=== PATIENT | male | born 1945 | race Caucasian/White ===

== ENCOUNTER 2019-06-26 12:17 | Outpatient (CLI) | payer MEDICARE, OTHER ==
--- NOTE | 2019-06-28 15:08 | MRI Report ---
Reason: RADICULOPATHY, CERVICAL RE Procedure Date: 06/26/2019 Accession Number: [id number] / [id number] Procedure: MRI - Cervical Spine W/O CPT Code: FULL RESULT: EXAM: MRI CERVICAL SPINE WITHOUT CONTRAST EXAM DATE: 06/26/2019 01:20 PM. CLINICAL HISTORY: Radiculopathy, cervical. COMPARISONS: None. TECHNIQUE: Multiplanar, multisequence T1-weighted and fluid-sensitive sequences of the cervical spine without contrast. Other: None. FINDINGS: Neurologic Structures: The visualized posterior fossa structures are unremarkable. No signal abnormality in the visualized spinal cord. Alignment: No scoliosis or spondylolisthesis. Bone Marrow: Firm fusion at C6-C7. No fractures. No marrow edema. Interspace Levels/Facets: C1-C2: Unremarkable. C2-C3: Mild broad-based disk bulge is present. No central or foraminal stenosis. C3-C4: Broad-based disk bulge, slight indentation of ventral thecal sac. Moderate central stenosis. Prominent facets. Severe left and moderate right foraminal stenosis. C4-C5: Broad-based disk bulge, marginal osteophytosis. Moderate central stenosis. Severe bilateral foraminal stenosis. C5-C6: Disk/osteophyte complex. Short pedicles. Prominent facets. No central stenosis. Mild bilateral foraminal stenosis. C6-C7: Firm interbody fusion at this level. No stenosis. C7-T1: Mild broad-based disk bulge is seen. Prominent facets. No central or foraminal stenosis. Musculature: Moderate to severe fatty atrophy of the multifidus muscle is present. Other: The paravertebral and prevertebral soft tissues are normal. IMPRESSION: 1. Posterior fossa and cervical cord have a normal appearance. Firm interbody fusion at C6-C7. No fractures. Moderate to severe fatty atrophy of the multifidus muscle is present. 2. C2-C3 shows a mild broad-based bulge, no central or foraminal stenosis. 3. C3-C4 shows a broad-based disk bulge with slight indentation of the ventral thecal sac. Moderate central stenosis. Severe left and moderate right foraminal stenosis. 4. C4-C5 shows a broad-based disk bulge. Moderate central stenosis and severe bilateral foraminal stenosis. 5. C5-C6 shows disk/osteophyte complex and short pedicles. No central stenosis. Mild bilateral foraminal stenosis. 6. C6-C7 shows a firm interbody fusion. No stenosis. 7. C7-T1 shows a mild broad-based disk bulge and prominent facets. No central or foraminal stenosis. RADIA
== END 2019-06-26 12:18 | disposition home or self-care (01) ==
LOC: DI 12:17
PROVIDERS: ATTEND Family Medicine
DX: M50.11 Cervical disc disorder with radiculopathy, high cervical region (principal); M48.02 Spinal stenosis, cervical region; M25.78 Osteophyte, vertebrae
CPT/HCPCS: 72141

== ENCOUNTER 2021-04-26 09:56 | Outpatient (CLI) | payer MEDICARE, OTHER ==
--- NOTE | 2021-04-26 11:34 | XRAY Report ---
PROCEDURE: Elbow 2 View RT INDICATIONS: ELBOW PAIN, RIGHT TECHNIQUE: 2 views of the elbow were acquired. COMPARISON: None FINDINGS: Bones: The elbow has mild degenerative changes. No fractures or dislocations. No suspicious bony les ions. Soft tissues: No elbow joint effusion. No suspicious soft tissue calcifications. IMPRESSION: Degenerative changes of the right elbow. No acute abnormality. Reviewed by: Joni Osman on 04/26/2021 11:32 AM PDT Approved by: Joni Osman on 04/26/2021 11:32 AM PDT Station ID: [id number]
== END 2021-04-26 23:59 | disposition home or self-care (01) ==
LOC: DI.N 09:56
PROVIDERS: ATTEND Family Medicine
DX: M19.021 Primary osteoarthritis, right elbow (principal)

== ENCOUNTER 2022-03-29 15:36 | Outpatient (CLI) | payer MEDICARE, OTHER ==
[2022-03-29 15:56] LABS: BASOPHILS % (AUTO) 0.8 %; EOSINOPHILS # (AUTO) 0.4 10^3/uL (0.0-0.7); EOSINOPHILS % (AUTO) 7.6 %; HCT - HEMATOCRIT 40.8 % (42.0-52.0); HGB - HEMOGLOBIN 12.6 g/dL (14.0-18.0); LYMPHOCYTES # (AUTO) 1.3 10^3/uL (1.5-3.5); LYMPHOCYTES % (AUTO) 25.7 %; MEAN CORPUSCULAR HGB CONC 30.9 g/dL (32.0-36.0); MEAN CORPUSCULAR VOLUME 100.2 fL (80.0-94.0); MONOCYTES # (AUTO) 0.5 10^3/uL (0.0-1.0); MONOCYTES % (AUTO) 10.3 %; NEUTROPHILS # (AUTO) 2.9 10^3/uL (1.5-6.6); NEUTROPHILS % (AUTO) 55.4 %; PLT - PLATELET COUNT 144 10^3/uL (130-450); RED BLOOD COUNT 4.07 10^6/uL (4.70-6.10); RED CELL DISTRIBUTION WIDTH 12.3 % (12.0-15.0); WHITE BLOOD COUNT 5.1 x10^3/uL (4.8-10.8)
[2022-03-29 16:11] LABS: CHOL/HDL RATIO 2.1 (<5.0); CHOLESTEROL 132 mg/dL; HDL CHOLESTEROL 64 mg/dL; TRIGLYCERIDES 37 mg/dL
[2022-03-29 16:23] LABS: THYROID STIMULATING HORMONE 0.78 uIU/mL (0.34-5.60)
[2022-03-29 16:26] LABS: ALBUMIN 3.9 g/dL (3.2-5.5); ALBUMIN/GLOBULIN RATIO 1.4 (1.0-2.2); ALKALINE PHOSPHATASE 55 IU/L (42-121); ALT ALANINE AMINOTRANSFERASE 17 IU/L (10-60); AST ASPARTATE AMINOTRANSFERASE 20 IU/L (10-42); BILIRUBIN,TOTAL 0.6 mg/dL (0.2-1.0); BUN - BLOOD UREA NITROGEN 27 mg/dL (6-20); CALCIUM 8.7 mg/dL (8.5-10.3); CARBON DIOXIDE - CO2 29 mmol/L (21-32); CHLORIDE 102 mmol/L (101-111); CREATININE 1.1 mg/dL (0.6-1.2); GFR - MDRD 65 (>89); GLUCOSE 120 mg/dL (70-100); POTASSIUM 4.6 mmol/L (3.5-5.0); SODIUM 138 mmol/L (135-145); TOTAL PROTEIN 6.7 g/dL (6.7-8.2)
== END 2022-03-29 15:37 | disposition home or self-care (01) ==
LOC: LAB 15:36
PROVIDERS: ATTEND Internal Medicine
DX: E78.5 Hyperlipidemia, unspecified (principal); I10 Essential (primary) hypertension
CPT/HCPCS: 36415; 80053; 80061; 83721; 84443; 85025

== ENCOUNTER 2022-03-30 14:14 | Outpatient (CLI) | payer MEDICARE, OTHER ==
[2022-03-30 15:19] LABS: PSA FREE 0.64 ng/mL (0.16-2.81)
[2022-03-30 15:20] LABS: PSA TOTAL 3.95 ng/mL (0.000-2.000)
== END 2022-03-30 14:15 | disposition home or self-care (01) ==
LOC: LAB 14:14
DX: N40.0 Benign prostatic hyperplasia without lower urinary tract symptoms (principal)
CPT/HCPCS: 36415; 84153; 84154

== ENCOUNTER 2022-08-08 14:34 | Outpatient (CLI) | payer MEDICARE, OTHER ==
[2022-08-08 14:44] LABS: BASOPHILS % (AUTO) 0.7 %; EOSINOPHILS # (AUTO) 0.4 10^3/uL (0.0-0.7); EOSINOPHILS % (AUTO) 6.9 %; HCT - HEMATOCRIT 42.4 % (42.0-52.0); HGB - HEMOGLOBIN 13.8 g/dL (14.0-18.0); LYMPHOCYTES # (AUTO) 1.7 10^3/uL (1.5-3.5); LYMPHOCYTES % (AUTO) 30.2 %; MEAN CORPUSCULAR HEMOGLOBIN 31.9 pg (27.0-31.0); MEAN CORPUSCULAR HGB CONC 32.5 g/dL (32.0-36.0); MEAN CORPUSCULAR VOLUME 97.9 fL (80.0-94.0); MEAN PLATELET VOLUME 10.4 fL (7.4-11.4); MONOCYTES # (AUTO) 0.7 10^3/uL (0.0-1.0); MONOCYTES % (AUTO) 11.3 %; NEUTROPHILS # (AUTO) 2.9 10^3/uL (1.5-6.6); NEUTROPHILS % (AUTO) 50.6 %; PLT - PLATELET COUNT 183 10^3/uL (130-450); RED BLOOD COUNT 4.33 10^6/uL (4.70-6.10); RED CELL DISTRIBUTION WIDTH 12.8 % (12.0-15.0); WHITE BLOOD COUNT 5.8 x10^3/uL (4.8-10.8)
[2022-08-08 14:56] LABS: CALCIUM 8.9 mg/dL (8.5-10.3); CREATININE 1.2 mg/dL (0.6-1.2); POTASSIUM 3.9 mmol/L (3.5-5.0)
== END 2022-08-08 14:35 | disposition home or self-care (01) ==
LOC: LAB 14:34
PROVIDERS: ATTEND Internal Medicine
DX: Z01.812 Encounter for preprocedural laboratory examination (principal); I49.3 Ventricular premature depolarization
CPT/HCPCS: 36415; 80048; 85025

== ENCOUNTER 2023-12-25 10:48 | Outpatient (CLI) | payer MEDICARE, OTHER | END 2023-12-25 10:49 | disposition critical access hospital (66) | LOC: EMS 10:48 | DX: R53.1 Weakness (principal); R11.0 Nausea; R47.81 Slurred speech | CPT/HCPCS: A0425; A0429 ==

== ENCOUNTER 2023-12-25 11:01 | Emergency (ER) | payer MEDICARE, OTHER ==
--- NOTE | 2023-12-25 11:11 | ED Physician Documentation ---
PD HPI FOCAL NEURO - Stated complaint Stated Complaint: WEAKNESS - History obtained from History obtained from: Patient, EMS - History of Present Illness Timing - onset: How many hours ago (1), Today Timing - duration: Hours (1) Timing - details: Abrupt onset (He states he got up from sitting in his legs felt weak and not holding him. He sat back down. No fall or injury. Subsequently feels his legs are moving symmetrically. He is however having difficulty speaking with the articulation as well as content. This is new for him.), Still present Severity of deficit: Moderate Weakness: No: Face, Arm, Leg Numbness: No: Face, Arm, Leg Associated symptoms: Other (expressive aphasia). No: Headache, Nausea / vomiting Contributing factors: positive: Anticoagulated (due to atrial fib. Last dose last evening.), Atrial fibrillation Baseline status: positive: A&OX3, ambulatory, indep Similar symptoms before: Has not had sx before Review of Systems Constitutional: denies: Fever, Chills Nose: denies: Rhinorrhea / runny nose, Congestion Throat: denies: Sore throat Cardiac: denies: Chest pain / pressure, Pedal edema Respiratory: reports: Dyspnea (intermittently, exertional). denies: Cough GI: reports: Nausea. denies: Abdominal Pain, Vomiting Neurologic: denies: Head injury, LOC PD PAST MEDICAL HISTORY - Past Medical History Cardiovascular: Congestive heart failure, Atrial fibrillation Respiratory: None Neuro: None - Present Medications Home Medications: Ambulatory Orders Medication Instructions Recorded Confirmed Eszopiclone [Lunesta] 3 mg PO QPM 12/25/23 12/25/23 Furosemide [Lasix] 40 mg PO DAILY 12/25/23 12/25/23 Losartan [Cozaar] 100 mg PO DAILY 12/25/23 12/25/23 Metoprolol Succinate [Toprol Xl] 25 mg PO BID 12/25/23 12/25/23 Ondansetron HCl 4 mg SL Q8HR PRN 12/25/23 12/25/23 Oxycodone HCl 10 - 15 mg PO Q4HR PRN 12/25/23 12/25/23 Rivaroxaban [Xarelto] 20 mg PO DAILY 12/25/23 12/25/23 Sertraline HCl 150 mg PO DAILY 12/25/23 12/25/23 Tamsulosin [Flomax] 0.4 mg PO DAILY 12/25/23 12/25/23 buPROPion HCL [Bupropion Xl] 300 mg PO DAILY 12/25/23 12/25/23 busPIRone [Buspar] 15 mg PO TID 12/25/23 12/25/23 traZODone [Desyrel] 100 mg PO HS 12/25/23 12/25/23 - Allergies Allergies/Adverse Reactions: Allergies Allergy/AdvReac Type Severity Reaction Status Date / Time No Known Drug Allergies Allergy Verified 12/25/23 11:31 PD ED PE NORMAL - Vitals Vital signs reviewed: Yes - General General: Alert and oriented X 3, Well developed/nourished - HEENT HEENT: Atraumatic, Pharynx benign - Neck Neck: Supple, no meningeal sign, No adenopathy - Cardiac Cardiac: No murmur. No: RRR (irregular but normal rate 80-110.) - Respiratory Respiratory: No respiratory distress - Abdomen Abdomen: Soft, Non tender - Derm Derm: Normal color, Warm and dry - Extremities Extremities: Normal ROM s pain - Neuro Neuro: Alert and oriented X 3, band edger 2-12 intact, No motor deficit, No sensory deficit. No: Normal speech NIHSS - Level of Consciousness Level of consciousness: (0) Alert, Keenly responsive LOC Questions: (0) Answers both Q's correct LOC Commands: (0) Performs both correctly - Gaze Best Gaze: (0) Normal - Visual Visual: (0) No loss - Facial Palsy Facial Palsy: (0) Normal, symmetrical movement - Motor Arms (both separate) Motor Arm (right): (0) No drift Motor Arm (left): (0) No drift - Motor Legs (both separate) Motor Leg (right): (0) No drift Motor Leg (left): (0) No drift - Limb Ataxia Limb Ataxia: (1) Present in 1 limb (right arm) - Sensory Sensory: (0) Normal - Best Language Best Language: (1) [id number] - Dysarthria Dysarthria: (1) Vrcs-ny-juiqthjr dysarthria - Extinction and Inattention (formally neg Extinction and inattention: (0) No abnormality - Total Score/Results Total Score/Result: 3 Results - Vitals Vitals: Vital Signs - 24 hr 12/25/23 12/25/2312/25/24 11:01 11:37 12:03 Temperature 36.8 C Heart Rate 85 99 90 Respiratory 18 19 20 Rate Blood Pressure 131/67 H 122/70 112/79 O2 Saturation 91 L 96 96 If not protocol 2 : Oxygen Flow, liters/minute 12/25/23 12/25/23 12/25/23 12:30 13:02 13:34 Temperature Heart Rate 98 100 104 H Respiratory 16 17 15 Rate Blood Pressure 117/74 111/62 126/69 O2 Saturation 91 L 93 94 If not protocol 2 2 : Oxygen Flow, liters/minute Oxygen O2 Source Nasal cannula - Labs Labs: Laboratory Tests 12/25/23 12/25/23 12/25/23 11:26 11:26 11:26 WBC 4.9 RBC 3.77 L Hgb 11.3 L Hct 37.3 L MCV 98.9 H MCH 30.0 MCHC 30.3 L RDW 13.5 Plt Count 115 L MPV 11.2 Neut # (Auto) 2.4 Lymph # (Auto) 1.7 Dixie # (Auto) 0.6 Eos # (Auto) 0.2 Baso # (Auto) 0.0 Absolute Nucleated RBC 0.00 Nucleated RBC % 0.0 ESR 18 PT INR Sodium 141 Potassium 3.3 L Chloride 102 Carbon Dioxide 33 H Anion Gap 6.0 BUN 25 H Creatinine 1.3 Estimated GFR (MDRD) 53 L Glucose 123 H Calcium 8.8 Magnesium 1.8 Total Bilirubin 1.1 H AST 22 ALT 14 Alkaline Phosphatase 72 Total Protein 6.8 Albumin 3.9 Globulin 2.9 Albumin/Globulin Ratio 1.3 Lipase 10 L 12/25/23 11:26 WBC RBC Hgb Hct MCV MCH MCHC RDW Plt Count MPV Neut # (Auto) Lymph # (Auto) Dixie # (Auto) Eos # (Auto) Baso # (Auto) Absolute Nucleated RBC Nucleated RBC % ESR PT 18.7 H INR 1.7 H Sodium Potassium Chloride Carbon Dioxide Anion Gap BUN Creatinine Estimated GFR (MDRD) Glucose Calcium Magnesium Total Bilirubin AST ALT Alkaline Phosphatase Total Protein Albumin Globulin Albumin/Globulin Ratio Lipase PD Medical Decision Making - ED course Complexity details: considered differential (Onset of aphasia and some ataxia of the right arm. He does take a DOAC with last dose last evening. History of A- fib. He had a CT scan head and angio. There was a occlusion at the V3 left vertebral. No bleed.), d/w patient, d/w golf tournament consultant (Dr. Combs, stroke neurology.) Reviewed Lab Results: The patient has acute symptoms concerning for CVA. CT of the head did not show any acute mass effect or bleeding. Angiogram was concerning for an apparent occlusion at the left vertebral V3 level. Stroke neurology, Dr. Combs, was consulted and was evaluating for potential endovascular approach for treatment. He consulted the endovascular neurologist at [facility] and decision was for nonendovascular treatment being of more distal area. There is still concern though for sequela a of posterior fossa stroke including bleeding, edema, impact on the brainstem. It was felt he should be in a neuro ICU. The neurologist made arrangements for transfer the patient to [facility]. I talked with the talent sourcer there, Dr. Mikel ANTOINE, who accepted transfer. Arrangements will be made for the patient to go ground ALS as he is on a heparin drip at the direction of neurology. Also neurochecks and concern for fluctuations in level of consciousness with subsequent airway issues would be of concern so ALS is appropriate. He is not serious enough to need airlift. 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
[2023-12-25 11:33] LABS: BASOPHILS % (AUTO) 0.4 %; EOSINOPHILS # (AUTO) 0.2 10^3/uL (0.0-0.7); EOSINOPHILS % (AUTO) 4.5 %; HCT - HEMATOCRIT 37.3 % (42.0-52.0); HGB - HEMOGLOBIN 11.3 g/dL (14.0-18.0); LYMPHOCYTES # (AUTO) 1.7 10^3/uL (1.5-3.5); LYMPHOCYTES % (AUTO) 33.9 %; MEAN CORPUSCULAR HGB CONC 30.3 g/dL (32.0-36.0); MEAN CORPUSCULAR VOLUME 98.9 fL (80.0-94.0); MEAN PLATELET VOLUME 11.2 fL (7.4-11.4); MONOCYTES # (AUTO) 0.6 10^3/uL (0.0-1.0); MONOCYTES % (AUTO) 12.9 %; NEUTROPHILS # (AUTO) 2.4 10^3/uL (1.5-6.6); NEUTROPHILS % (AUTO) 48.1 %; PLT - PLATELET COUNT 115 10^3/uL (130-450); RED BLOOD COUNT 3.77 10^6/uL (4.70-6.10); RED CELL DISTRIBUTION WIDTH 13.5 % (12.0-15.0); WHITE BLOOD COUNT 4.9 x10^3/uL (4.8-10.8)
--- NOTE | 2023-12-25 11:33 | CT Report ---
PROCEDURE: Head W/O Stroke Protocol INDICATIONS: aphasia and weakness TECHNIQUE: Noncontrast 4.5 mm thick angled axial sections acquired from the foramen magnum to the vertex, with c oronal reformats. For radiation dose reduction, the following was used: automated exposure control, adjustment of mA and/or kV according to patient size. COMPARISON: None. FINDINGS: Image quality: Moderate patient motion artifact. CSF spaces: Basal cisterns are patent. No extra-axial fluid collections. Ventricles are normal in size and shape. Brain: No midline shift. No intracranial masses or hemorrhage. No mass effect. Quiles-white matter i nterface is normal. There cerebral volume loss for age with resultant ventricular and sulcal prominen ce. There are periventricular and deep white matter chronic small vessel ischemic changes. Atheroscle rotic calcifications are noted in the intracranial segments of the bilateral internal carotid arterie s. Skull and face: Calvarium and visualized facial bones are intact, without suspicious lesions. Sinuses: Mild left maxillary sinus mucosal thickening. Other paranasal sinuses and mastoids are clear . IMPRESSION: No acute intracranial pathology Age-related senescent changes and sequela of chronic small vessel ischemic disease. Mild left maxillary sinus disease. Findings were discussed telephonically with Dr. Geiger at 1129 hours. This study fulfills neurological imaging criteria for inclusion or exclusion of acute stroke therapie s based on available published neurological imaging guidelines. Reviewed by: Lauri Suazo MD on 12/25/2023 11:32 AM [facility] Approved by: Lauri Suazo MD on 12/25/2023 11:32 AM PST Station ID: [id number]
[2023-12-25] MEDS: SODIUM CHLORIDE 0.9% 1,000 ML IV STA ×2 (11:34→12:57)
[2023-12-25 11:46] LABS: ALBUMIN 3.9 g/dL (3.2-5.5); ALBUMIN/GLOBULIN RATIO 1.3 (1.0-2.2); BILIRUBIN,TOTAL 1.1 mg/dL (0.2-1.0); CALCIUM 8.8 mg/dL (8.5-10.3); CREATININE 1.3 mg/dL (0.6-1.3); MAGNESIUM 1.8 mg/dL (1.7-2.3); POTASSIUM 3.3 mmol/L (3.5-4.5); TOTAL PROTEIN 6.8 g/dL (6.4-8.9)
[2023-12-25 11:50] LABS: INR 1.7 (0.8-1.2); PT - PROTHROMBIN TIME 18.7 secs (9.9-12.6)
--- NOTE | 2023-12-25 12:05 | CT Report ---
PROCEDURE: Angio Head/Neck INDICATIONS: aphasia and weakness this morning CONTRAST: Omni 300 80ml TECHNIQUE: After the administration of intravenous contrast, 1 mm thick sections acquired through the [place]. Postcontrast 4.5 mm thick sections then re-acquired from the foramen magnum to the vertex. 3-dimensional orrcwqt-xferulgdi-kbddtmbgju (MIP) and/or volume rendering reformats were acquired of t central intracranial vasculature. For radiation dose reduction, the following was used: automate d exposure control, adjustment of mA and/or kV according to patient size. COMPARISON: CT head from earlier same day. FINDINGS: Image quality: Diagnostic. Anterior circulation: Intracranial internal carotid arteries are normal in size and flow. The flow within the paired anterior cerebral arteries is normal and symmetric. The flow within the middle cer ebral arteries is normal and symmetric. The anterior communicating artery is seen. No aneurysms are seen. Posterior circulation: Visualized portions of the right vertebral artery demonstrates normal caliber , and join to form a normal appearing basilar artery. There is diminutive size of the left vertebral artery. Flow within the posterior cerebral arteries is normal and symmetric. No aneurysms are seen. CSF spaces: Ventricles are normal in size and shape. Basal cisterns are patent. No extra-axial flu id collections. Brain: No midline shift. No intracranial bleeds or masses. Quiles-white matter interface appears int act. Skull and face: Calvarium and facial bones appear intact, without suspicious lesions. Sinuses: Mild left maxillary sinus disease. Other paranasal sinuses and mastoids appear clear. NECK CT ANGIOGRAPHY: Carotid system: The great vessels demonstrate a conventional anatomy as they arise from the aortic a rch. The origins of the common carotid arteries appear patent. The common carotid arteries demonstr ate normal caliber and courses. The bifurcation regions are both widely patent. The internal caroti d arteries demonstrate normal calibers and courses. Posterior circulation: The origins of the right vertebral artery is patent. There is significant chapo rowing at the origin of the left vertebral artery with diminutive caliber of the left vertebral arter y within the foramen. There is occlusion of the left V3 segment. Narrowing of the V4 segment on the l eft. Remainder of the intracranial segments of the posterior system opacified likely from collateral flow. Soft tissues: Visualized neck soft tissues demonstrate no suspicious abnormalities. Bones: No suspicious bony lesions. Visualized cervical spine appears normally aligned. No acute com pression fractures. Multilevel cervical spondylosis. IMPRESSION: 1. 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 There is occlusion of the V3 segment of the left vertebral artery . 2. Otherwise, negative CT angiogram of the intracranial and neck arterial vasculature. Findings were discussed with Dr. Geiger at 1200 hrs. Reviewed by: Lauri Suazo MD on 12/25/2023 12:03 PM PST Approved by: Lauri Suazo MD on 12/25/2023 12:03 PM PST Station ID: [id number]
[2023-12-25] MEDS: ONDANSETRON 4 MG/2 ML VIAL IVP STA (12:57)
[2023-12-25] MEDS: HEPARIN 25000UNITS/500ML (D5W) 25,000 UNIT/500 ML BAG IV SCH (13:27)
[2023-12-25] MEDS: iohexoL-300 100 ML VIAL IVP ONE (15:19)
[2023-12-25 16:21] VITALS: BP 139/94; O2SAT 98
== END 2023-12-25 16:33 | disposition short-term general hospital (02) ==
LOC: EDUNIT# → ED 11:01
DX: I63.9 Cerebral infarction, unspecified (principal); R47.1 Dysarthria and anarthria; I69.320 Aphasia following cerebral infarction; I48.91 Unspecified atrial fibrillation; Z79.01 Long term (current) use of anticoagulants
CPT/HCPCS: 36415; 80053; 83690; 83735; 85025; 85610; 85651; 93005; 96365; 96366; 96375; 99291

== ENCOUNTER 2023-12-25 16:33 | Outpatient (CLI) | payer MEDICARE, OTHER | END 2023-12-25 16:34 | disposition short-term general hospital (02) | LOC: EMS 16:33 | PROVIDERS: ATTEND Emergency Medicine | DX: I63.9 Cerebral infarction, unspecified (principal) | CPT/HCPCS: A0425; A0426 ==

== ENCOUNTER 2024-04-13 09:57 | Outpatient (CLI) | payer MEDICARE, OTHER | END 2024-04-13 23:59 | disposition critical access hospital (66) | LOC: EMS 09:57 | DX: R07.81 Pleurodynia (principal); W17.89XA Other fall from one level to another, initial encounter; Y92.008 Other place in unspecified non-institutional (private) residence as the place of occurrence of the external cause; Z79.01 Long term (current) use of anticoagulants | CPT/HCPCS: A0425; A0427 ==

== ENCOUNTER 2024-04-13 10:08 | Emergency (ER) | payer MEDICARE, OTHER ==
--- NOTE | 2024-04-13 10:28 | ED Physician Documentation ---
PD HPI Fall - Stated complaint Stated Complaint: GLF/RIB PX - Chief complaint Chief Complaint: Trauma Ch/Bk - History obtained from History obtained from: Patient - History of Present Illness Mechanism of injury: Tripped (he was stepping off decking in dark and though was 4 inches downa nd was more like 12, so he fellwforward, tucking and rolling onto he back, not gracefully.) Fall distance: Standing position Where injury occurred: Home Timing - onset: How many days ago (3) Injury(ies) location: Chest, Back (left posterior scapular area). No: Head, Neck, Abdomen Pain level max: 8 Pain level now: 5 Quality of pain: Pain, Sharp Associated symptoms: No: LOC, AMS Worsens with: Movement, Palpation, Other (deep breathing) Contributing factors: Anticoagulated (eliuis for atrial fib.) Similar symptoms before: Has not had sx before Review of Systems Musculoskeletal: reports: Back pain Neurologic: denies: Focal weakness, Numbness, Confused, Altered mental status, Headache, Head injury PD PAST MEDICAL HISTORY - Past Medical History Cardiovascular: Congestive heart failure, Deep vein thrombosis, Atrial fibrillation Respiratory: None Neuro: None - Past Surgical History Past Surgical History: No - Present Medications Home Medications: Ambulatory Orders Medication Instructions Recorded Confirmed Eszopiclone [Lunesta] 3 mg PO QPM 12/25/23 12/25/23 Furosemide [Lasix] 40 mg PO DAILY 12/25/23 12/25/23 Losartan [Cozaar] 100 mg PO DAILY 12/25/23 12/25/23 Metoprolol Succinate [Toprol Xl] 25 mg PO BID 12/25/23 12/25/23 Ondansetron HCl 4 mg SL Q8HR PRN 12/25/23 12/25/23 Oxycodone HCl 10 - 15 mg PO Q4HR PRN 12/25/23 12/25/23 Rivaroxaban [Xarelto] 20 mg PO DAILY 12/25/23 12/25/23 Sertraline HCl 150 mg PO DAILY 12/25/23 12/25/23 Tamsulosin [Flomax] 0.4 mg PO DAILY 12/25/23 12/25/23 buPROPion HCL [Bupropion Xl] 300 mg PO DAILY 12/25/23 12/25/23 busPIRone [Buspar] 15 mg PO TID 12/25/23 12/25/23 traZODone [Desyrel] 100 mg PO HS 12/25/23 12/25/23 Lidocaine Patch 5% [Lidoderm Patch] 1 patch TOP DAILY PRN #10 patch 04/13/24 - Allergies Allergies/Adverse Reactions: Allergies Allergy/AdvReac Type Severity Reaction Status Date / Time No Known Drug Allergies Allergy Verified 04/13/24 10:24 - Social History Does the pt smoke?: No Smoking Status: Never smoker Does the pt drink ETOH?: No Does the pt have substance abuse?: No PD ED PE NORMAL - Vitals Vital signs reviewed: Yes - General General: Alert and oriented X 3, Well developed/nourished - HEENT HEENT: Atraumatic - Neck Neck: Supple, no meningeal sign, No bony TTP, No adenopathy - Cardiac Cardiac: RRR, No murmur - Respiratory Respiratory: No respiratory distress, Clear bilaterally - Back Back: No spinal TTP (tender in left scapular area. ) - Derm Derm: Normal color, Warm and dry - Extremities Extremities: No tenderness to palpate - Neuro Neuro: Alert and oriented X 3, No motor deficit, No sensory deficit Results - Vitals Vitals: Oxygen O2 Source Room air - Labs Labs: Laboratory Tests 04/13/24 12:09 Sodium 141 Potassium 4.2 Chloride 101 Carbon Dioxide 35 H Anion Gap 5.0 L BUN 18 Creatinine 1.2 Estimated GFR (MDRD) 58 L Glucose 111 H Calcium 9.3 Total Bilirubin 1.3 H AST 38 ALT 36 Alkaline Phosphatase 90 Total Protein 6.6 Albumin 3.8 Globulin 2.8 Albumin/Globulin Ratio 1.4 Lipase 40 - Rads (name of study) head CT Relevant Findings:: EMP independent interpretation of test (no ICH nor acute changes. ), See rad report chest CT Relevant Findings:: EMP independent interpretation of test (no PTX nor pulmonary contusion. Fracture ribs 4-6 nondisplaced. ), See rad report (small extrapleural hematoma in area of fractures. ) PD Medical Decision Making - ED course Complexity details: reviewed results, re-evaluated patient (he is doing well with level of pain and does not need hospitalization. 3rib fractures ), considered differential (patient fell nto left scapular back with pain ther the past 3 days worse with movement and breathing, lifting with arm. and lying flat. Can get CT scan for accuracy. Did not hit head but did have reasonable impact fall on DOAC. Can get head CT as well. Modified trauma. ), d/w patient Departure - Departure Disposition: 01 Home, Self Care Clinical Impression: Anticoagulant long-term use Accidental fall Qualifiers: Encounter type: initial encounter Qualified Code(s): W19.XXXA - Unspecified fall, initial encounter Rib fractures Qualifiers: Encounter type: initial encounter Fracture type: closed Laterality: left Qualified Code(s): S22.42XA - Multiple fractures of ribs, left side, initial encounter for closed fracture Condition: Stable Record reviewed to determine appropriate education?: Yes Instructions: ED Fx Rib Follow-Up: Leslie Cruz MD [Primary Care Provider] - Prescriptions: Lidocaine Patch 5% [Lidoderm Patch] 1 patch TOP DAILY PRN #10 patch PRN Reason: pain Comments: Your head CT does not show any acute bleeding or swelling. The prior right occipital stroke is noted. We did evaluate your head scan since you did have a fall and are on of blood thinners. The CT scan of your chest showed better detailing than the plain x-ray. On the CT scan we could see 3 rib fractures on the left side, numbers 4 5 and 6. There is some small hematoma/blood collection outside of the rib so in the muscle area. No signs of injury or bleeding into the lung field. Continue with usual medicines. I would suggest using Tylenol 500 to 650 mg 4 times daily regularly for the next week or 2 to help with the pain. Sometimes topical can help as well such as a lidocaine patch. Continue your other usual medicines. Follow-up with your primary care. Activity as tolerated. Forms: PCP List Discharge Date/Time: 04/13/24 15:05
--- NOTE | 2024-04-13 11:38 | XRAY Report ---
PROCEDURE: Ribs w/PA Chest 3+V LT INDICATIONS: L rib pain TECHNIQUE: 2 views of the ribs were acquired, along with a single view chest. COMPARISON: None. FINDINGS: Surgical changes and devices: None. Bones and chest wall: No acute displaced fracture. There may be a nondisplaced fracture at the anter olateral margin of the left seventh rib. Lungs and pleura: Possible left basal atelectasis. No dense airspace disease. No significant pneumot horax or pleural effusion Mediastinum: Normal heart size IMPRESSION: Possible nondisplaced fracture at the anterolateral margin of the seventh rib. If there is high wallace rn for occult injury, consider repeat radiography or cross-sectional imaging. Reviewed by: Toni Sanabria MD on 04/13/2024 11:36 AM PDT Approved by: Toni Sanabria MD on 04/13/2024 11:36 AM PDT Station ID: [id number]
[2024-04-13] MEDS: ACETAMINOPHEN 500 MG TABLET PO STA (12:10)
[2024-04-13] MEDS ORDERED: iohexoL-300 100 ML VIAL ONE (12:12)
[2024-04-13 12:33] LABS: ALBUMIN 3.8 g/dL (3.2-5.5); ALBUMIN/GLOBULIN RATIO 1.4 (1.0-2.2); BILIRUBIN,TOTAL 1.3 mg/dL (0.2-1.0); CALCIUM 9.3 mg/dL (8.5-10.3); CREATININE 1.2 mg/dL (0.6-1.3); POTASSIUM 4.2 mmol/L (3.5-4.5); TOTAL PROTEIN 6.6 g/dL (6.4-8.9)
--- NOTE | 2024-04-13 13:48 | CT Report ---
PROCEDURE: Head WO INDICATIONS: fall, chest injury, on Eliquis TECHNIQUE: Noncontrast 4.5 mm thick angled axial sections acquired from the foramen magnum to the vertex. For r adiation dose reduction, the following was used: automated exposure control, adjustment of mA and/or kV according to patient size. COMPARISON: 12/25/2023. FINDINGS: Image quality: Excellent. CSF spaces: Basal cisterns are patent. No extra-axial fluid collections. Ventricles are normal in size and shape. Brain: No midline shift. No intracranial masses or hemorrhage. Quiles-white matter interface is norm al. Intracranial carotid calcifications. Age-related volume loss and mild small vessel ischemic alvarado ge. Interval development of a chronic focal right [employer]ENT distribution occipital infarct. Skull and face: Calvarium and visualized facial bones are intact, without suspicious lesions. Sinuses: Visualized sinuses and mastoids are clear. IMPRESSION: 1. There is interval development of a chronic focal right DRUG ENFORCEMENT AGENT distribution right occipital infarct. 2. Age-related volume loss and mild small vessel ischemic change. 3. No acute intracranial process. Reviewed by: Hiram Rios MD on 04/13/2024 1:47 PM PDT Approved by: Hiram Rios MD on 04/13/2024 1:47 PM PDT Station ID: [id number]
[2024-04-13] MEDS: iohexoL-300 100 ML VIAL IVP ONE (14:01)
--- NOTE | 2024-04-13 14:27 | CT Report ---
PROCEDURE: Chest W INDICATIONS: fall with posterior left chest pain CONTRAST: Omni 300 100ml TECHNIQUE: After the administration of intravenous contrast, a CT scan of the chest was performed. Images were recorded and evaluated at appropriate window settings. Reformats: axial MIP of the chest, coronal and sagittal. For radiation dose reduction, the following was used: automated exposure control, adjustme nt of mA and/or kV according to patient size. COMPARISON: None FINDINGS: Image quality: Diagnostic Lungs and pleura:No pneumothorax or hemothorax. No dense airspace disease or pulmonary laceration. Sc attered scarring/atelectasis are present. Micronodules and calcified granulomas are present, optional follow-up may be obtained in one year if the patient is considered high risk, for example in the lef t lung image . Mediastinum, heart, and esophagus: No hiatal hernia. Cardiomegaly. No pathologic lymph nodes by size criteria. No mediastinal hematoma Chest wall and thyroid: Mild gynecomastia. Thyroid is unremarkable. Upper abdomen: No gross abnormality, partially visualized Bones: Nondisplaced fractures of the left fourth through 6 lateral ribs. Degenerative thoracic spine changes. Small extrapleural hematoma. IMPRESSION: Nondisplaced fractures of the left fourth through sixth lateral ribs with small extrapleural hematoma . No acute intrathoracic abnormality. Reviewed by: Toni Sanabria MD on 04/13/2024 2:25 PM PDT Approved by: Toni Sanabria MD on 04/13/2024 2:25 PM PDT Station ID: [id number]
[2024-04-13 15:06] VITALS: BP 133/91; O2SAT 95
== END 2024-04-13 15:05 | disposition home or self-care (01) ==
LOC: EDUNIT# → ED 10:08
DX: S22.42XA Multiple fractures of ribs, left side, initial encounter for closed fracture (principal); W17.89XA Other fall from one level to another, initial encounter; Y92.007 Garden or yard of unspecified non-institutional (private) residence as the place of occurrence of the external cause; I50.9 Heart failure, unspecified; I48.91 Unspecified atrial fibrillation; Z79.01 Long term (current) use of anticoagulants; Z79.899 Other long term (current) drug therapy
CPT/HCPCS: 36415; 80053; 83690; 99284

== ENCOUNTER 2024-05-29 22:04 | Outpatient (CLI) | payer MEDICARE, OTHER | END 2024-05-29 23:59 | disposition critical access hospital (66) | LOC: EMS 22:04 | DX: R11.0 Nausea (principal); R00.2 Palpitations; R53.1 Weakness; Z72.820 Sleep deprivation | CPT/HCPCS: A0425; A0429 ==

== ENCOUNTER 2024-05-29 22:16 | Emergency (ER) | payer MEDICARE, OTHER ==
[2024-05-29] MEDS: SODIUM CHLORIDE 0.9% 1,000 ML IV STA ×2 (22:30→23:43)
[2024-05-29 22:32] LABS: BASOPHILS % (AUTO) 0.5 %; EOSINOPHILS # (AUTO) 0.5 10^3/uL (0.0-0.7); EOSINOPHILS % (AUTO) 10.8 %; HCT - HEMATOCRIT 36.9 % (42.0-52.0); HGB - HEMOGLOBIN 11.6 g/dL (14.0-18.0); LYMPHOCYTES # (AUTO) 1.1 10^3/uL (1.5-3.5); LYMPHOCYTES % (AUTO) 24.4 %; MEAN CORPUSCULAR HEMOGLOBIN 31.5 pg (27.0-31.0); MEAN CORPUSCULAR HGB CONC 31.4 g/dL (32.0-36.0); MEAN CORPUSCULAR VOLUME 100.3 fL (80.0-94.0); MONOCYTES # (AUTO) 0.4 10^3/uL (0.0-1.0); MONOCYTES % (AUTO) 9.5 %; NEUTROPHILS # (AUTO) 2.4 10^3/uL (1.5-6.6); NEUTROPHILS % (AUTO) 54.6 %; PLT - PLATELET COUNT 123 10^3/uL (130-450); RED BLOOD COUNT 3.68 10^6/uL (4.70-6.10); RED CELL DISTRIBUTION WIDTH 15.5 % (12.0-15.0); WHITE BLOOD COUNT 4.4 x10^3/uL (4.8-10.8)
[2024-05-29 22:48] LABS: ALBUMIN 3.8 g/dL (3.2-5.5); ALBUMIN/GLOBULIN RATIO 1.3 (1.0-2.2); BILIRUBIN,TOTAL 1.1 mg/dL (0.2-1.0); CALCIUM 9.2 mg/dL (8.5-10.3); CREATININE 1.8 mg/dL (0.6-1.3); POTASSIUM 4.5 mmol/L (3.5-4.5); TOTAL PROTEIN 6.8 g/dL (6.4-8.9)
[2024-05-29 22:54] LABS: TROPONIN I HIGH SENSITIVITY 11.2 ng/L (2.3-19.7)
--- NOTE | 2024-05-29 23:05 | ED Physician Documentation ---
PD HPI NVD - Stated complaint Stated Complaint: NAUSEA,DIARRHEA,WEAKNESS - Chief complaint Chief Complaint: Abd Pain - History obtained from History obtained from: Patient - Additonal information Additional information: HPI from patient. Patient complains of 2 days of nausea without vomiting. As result of the nausea, he has had very little p.o. intake (both solids and liquids) and has skipped some of his medications today for fear of worsening the nausea. Denies any pain including chest pain, abdominal pain. Denies fever. Has had 1 episode of diarrhea this evening but otherwise has not been having diarrhea. Patient says he has become increasingly weak over the past 1 to 2 days also noting decreased urine output. PD PAST MEDICAL HISTORY - Past Medical History Past Medical History: Yes Cardiovascular: Congestive heart failure, Deep vein thrombosis, Atrial fibrillation Respiratory: None Neuro: None - Past Surgical History Past Surgical History: No - Present Medications Home Medications: Ambulatory Orders Medication Instructions Recorded Confirmed Eszopiclone [Lunesta] 3 mg PO QPM 12/25/23 12/25/23 Furosemide [Lasix] 40 mg PO DAILY 12/25/23 12/25/23 Losartan [Cozaar] 100 mg PO DAILY 12/25/23 12/25/23 Metoprolol Succinate [Toprol Xl] 25 mg PO BID 12/25/23 12/25/23 Ondansetron HCl 4 mg SL Q8HR PRN 12/25/23 12/25/23 Oxycodone HCl 10 - 15 mg PO Q4HR PRN 12/25/23 12/25/23 Rivaroxaban [Xarelto] 20 mg PO DAILY 12/25/23 12/25/23 Sertraline HCl 150 mg PO DAILY 12/25/23 12/25/23 Tamsulosin [Flomax] 0.4 mg PO DAILY 12/25/23 12/25/23 buPROPion HCL [Bupropion Xl] 300 mg PO DAILY 12/25/23 12/25/23 busPIRone [Buspar] 15 mg PO TID 12/25/23 12/25/23 traZODone [Desyrel] 100 mg PO HS 12/25/23 12/25/23 Lidocaine Patch 5% [Lidoderm Patch] 1 patch TOP DAILY PRN #10 patch 04/13/24 Ondansetron Odt [Zofran Odt] 4 mg TL Q6H PRN #14 tablet 05/30/24 - Allergies Allergies/Adverse Reactions: Allergies Allergy/AdvReac Type Severity Reaction Status Date / Time No Known Drug Allergies Allergy Verified 05/29/24 22:22 - Social History Does the pt smoke?: No Smoking Status: Never smoker Does the pt drink ETOH?: No Does the pt have substance abuse?: No PD ED PE NORMAL - Vitals Vital signs reviewed: Yes - General General: Alert and oriented X 3, No acute distress, Well developed/nourished - HEENT HEENT: Other (tacky muscous membranes) - Abdomen Abdomen: Normal bowel sounds, Soft, Non tender, Non distended - Derm Derm: Normal color, Warm and dry PD ED PE EXPANDED - Cardiac Cardiac: Irregularly irregular, Murmur Present (3/6 diastolic murmur greatest at cardiac base) - Respiratory Respiratory: Rhonchi (scattered bilateral rhonchi) - Extremities Extremities: Pedal edema bilateral Results - Vitals Vitals: Oxygen O2 Source Room air - EKG (time done) No standard instances EKG releavant findings:: EKG personally interpreted by author of this note. Relevant findings are: Rate: Rate (enter#) (80) Rhythm: Atrial fibrillation [place]: Normal Intervals: QRS normal QRS: Normal Ischemia: Normal ST segments - Labs Labs: Laboratory Tests 05/29/24 05/29/24 05/29/24 22:26 22:26 22:33 WBC 4.4 L RBC 3.68 L Hgb 11.6 L Hct 36.9 L MCV 100.3 H MCH 31.5 H MCHC 31.4 L RDW 15.5 H Plt Count 123 L MPV 11.0 Neut # (Auto) 2.4 Lymph # (Auto) 1.1 L [place] # (Auto) 0.4 Eos # (Auto) 0.5 Baso # (Auto) 0.0 Absolute Nucleated RBC 0.00 Nucleated RBC % 0.0 Sodium 140 Potassium 4.5 Chloride 102 Carbon Dioxide 32 Anion Gap 6.0 BUN 22 H Creatinine 1.8 H Estimated GFR (MDRD) 36 L Glucose 112 H Calcium 9.2 Total Bilirubin 1.1 H AST 37 ALT 25 Alkaline Phosphatase 102 Troponin I High Sens 11.2 Total Protein 6.8 Albumin 3.8 Globulin 3.0 Albumin/Globulin Ratio 1.3 Lipase 102 H Nasal Adenovirus (PCR) NOT DETECTED Nasal B. parapertussis DNA (PCR) NOT DETECTED Nasal Coronavir 229E PCR NOT DETECTED Nasal Coronavir HKU1 PCR NOT DETECTED Nasal Coronavir NL63 PCR NOT DETECTED Nasal Coronavir OC43 PCR NOT DETECTED Nasal Enterovir/Rhinovir PCR NOT DETECTED Nasal Influenza B PCR NOT DETECTED Nasal Influenza A PCR NOT DETECTED Nasal Parainfluen 1 PCR NOT DETECTED Nasal Parainfluen 2 PCR NOT DETECTED Nasal Parainfluen 3 PCR NOT DETECTED Nasal Parainfluen 4 PCR NOT DETECTED Nasal RSV (PCR) NOT DETECTED Nasal B.pertussis DNA PCR NOT DETECTED Nasal C.pneumoniae (PCR) NOT DETECTED Nikos Human Metapneumo PCR NOT DETECTED Nasal M.pneumoniae (PCR) NOT DETECTED Nasal SARS-CoV-2 (PCR) NOT DETECTED - Rads (name of study) chest xray Relevant Findings:: Prelim report reviewed, See rad report PD Medical Decision Making - ED course Complexity details: reviewed results, re-evaluated patient, considered differential, d/w patient ED course: Mild pancytopenia (WBC 4.4, hgb 11.6, platelets 123). Elevated BUN (22), creatinine (1.8). Has had similarly elevated BUN on previous results in [employer] although creatinine levels had been normal. Minimally elevated bilirubin (1.1) with otherwise normal LFTs. Lipase mildly elevated (102). Etiology of symptoms is not apparent at this time. He is given 4mg IV zofran, 2 liters NS IV. On reevaluation, he reports feeling much improved and resolution of nausea. Results d/w patient. Suspect dehydration as cause of elevated BUN, creatinine. The dehydration likely result of decreased PO which, in turn, due to nausea. Etiology of his nausea is not apparent at this time. Return precautions reviewed. I instructed patient to follow up with PCP, next available appointment, for reevaluation; I stressed to him the importance of doing so even if he feels well, as he will likely at least need repeat of kidney function tests (bun, creatinine) Departure - Departure Disposition: 01 Home, Self Care Clinical Impression: Dehydration, Pancytopenia Condition: Good Instructions: ED Dehydration Follow-Up: Leslie Cruz MD [Primary Care Provider] - Prescriptions: Ondansetron Odt [Zofran Odt] 4 mg TL Q6H PRN #14 tablet PRN Reason: Nausea / Vomiting Comments: The most notable findings on tonight's blood tests are as follows: 1) Your kidney function tests are abnormal. These are the BUN and creatinine (both are blood tests that reflect kidney function). While I note some of your previous BUN results in your records were similar to tonight's result, your creatinine results have previously been normal. This is likely due to dehydration, but it is important that you contact your primary care provider to arrange for the next available appointment for reevaluation and discussion of these results. 2) Your white blood cell count, red blood cell count, and platelets are all low. Each of these abnormalities is just a little below normal range, but when all three of these results are abnormal, further testing is often needed. Again, you need to discuss this with your primary care provider as soon as can be arranged for reevaluation of these results. I have electronically submitted a prescription for ondansetron (anti-nausea medication) to the [facility] pharmacy in [place]. Forms: PCP List Discharge Date/Time: 05/30/24 02:08
[2024-05-29] MEDS: ONDANSETRON 4 MG/2 ML VIAL IVP STA (23:28)
[2024-05-29 23:37] LABS: B. PARAPERTUSSIS- RESP PCR PAN NOT DETECTED; B. PERTUSSIS- RESP PCR PANEL NOT DETECTED; C. PNEUMONIAE- RESP PCR PANEL NOT DETECTED; CORONAVIRUS 229E-RESP PCR NOT DETECTED; CORONAVIRUS HKU1-RESP PCR NOT DETECTED; CORONAVIRUS NL63-RESP PCR NOT DETECTED; CORONAVIRUS OC43-RESP PCR NOT DETECTED; HUMAN METAPNEUMOVIRUS NOT DETECTED; INFLUENZA A- RESP PCR PANEL NOT DETECTED; INFLUENZA B - RESP PCR PANEL NOT DETECTED; M. PNEUMONIAE- RESP PCR PANEL NOT DETECTED; PARAINFLUENZA VIRUS 1 NOT DETECTED; PARAINFLUENZA VIRUS 2 NOT DETECTED; PARAINFLUENZA VIRUS 3 NOT DETECTED; PARAINFLUENZA VIRUS 4 NOT DETECTED; RHINOVIRUS/ENTEROVIRUS NOT DETECTED; RSV- RESP PCR PANEL NOT DETECTED; SARS-CoV-2 -RESP PCR PANEL NOT DETECTED
--- NOTE | 2024-05-30 00:43 | XRAY Report ---
PROCEDURE: Chest 2V INDICATIONS: malaise, abnormal breath sounds TECHNIQUE: 2 views of the chest were acquired. COMPARISON: CT chest 04/13/2024. FINDINGS: Surgical changes and devices: None. Lungs and pleura: No pleural effusions or pneumothorax. Lungs are slightly edematous. Mediastinum: Mediastinal contours appear normal. Heart size is at the upper limits of normal. Bones and chest wall: No suspicious bony lesions. Overlying soft tissues appear unremarkable. IMPRESSION: Mild pulmonary edema, heart size is at the upper limits of normal. No focal pneumonia found. Reviewed by: Fletcher Dominguez MD on 05/30/2024 12:41 AM PDT Approved by: Fletcher Dominguez MD on 05/30/2024 12:41 AM PDT Station ID: [id number]
[2024-05-30 02:10] VITALS: BP 116/74; O2SAT 94
== END 2024-05-30 02:08 | disposition home or self-care (01) ==
LOC: EDUNIT# → ED 22:16
DX: E86.0 Dehydration (principal); D61.818 Other pancytopenia; I50.9 Heart failure, unspecified; I48.91 Unspecified atrial fibrillation; Z86.718 Personal history of other venous thrombosis and embolism; Z79.01 Long term (current) use of anticoagulants; Z79.899 Other long term (current) drug therapy
CPT/HCPCS: 36415; 80053; 83690; 84484; 85025; 87633; 93005; 96361; 96374; 99284

== ENCOUNTER 2024-08-06 13:18 | Outpatient (CLI) | payer MEDICARE, OTHER ==
[2024-08-06 14:03] LABS: CALCIUM 9.4 mg/dL (8.5-10.3); CREATININE 1.7 mg/dL (0.6-1.3); POTASSIUM 3.6 mmol/L (3.5-4.5)
== END 2024-08-06 13:19 | disposition home or self-care (01) ==
LOC: LAB 13:18
PROVIDERS: ATTEND Internal Medicine
DX: I50.32 Chronic diastolic (congestive) heart failure (principal)
CPT/HCPCS: 36415; 80048

== ENCOUNTER 2024-11-06 11:03 | Inpatient (IN) ==
[2024-11-06 12:24] LABS: BASOPHILS % (AUTO) 0.9 %; EOSINOPHILS # (AUTO) 0.6 10^3/uL (0.0-0.7); EOSINOPHILS % (AUTO) 13.1 %; HCT - HEMATOCRIT 30.3 % (42.0-52.0); HGB - HEMOGLOBIN 9.5 g/dL (14.0-18.0); LYMPHOCYTES # (AUTO) 0.9 10^3/uL (1.5-3.5); LYMPHOCYTES % (AUTO) 19.7 %; MEAN CORPUSCULAR HEMOGLOBIN 32.4 pg (27.0-31.0); MEAN CORPUSCULAR HGB CONC 31.4 g/dL (32.0-36.0); MEAN CORPUSCULAR VOLUME 103.4 fL (80.0-94.0); MEAN PLATELET VOLUME 12.1 fL (7.4-11.4); MONOCYTES # (AUTO) 0.7 10^3/uL (0.0-1.0); MONOCYTES % (AUTO) 15.5 %; NEUTROPHILS # (AUTO) 2.4 10^3/uL (1.5-6.6); NEUTROPHILS % (AUTO) 50.6 %; PLT - PLATELET COUNT 82 10^3/uL (130-450); RED BLOOD COUNT 2.93 10^6/uL (4.70-6.10); RED CELL DISTRIBUTION WIDTH 15.6 % (12.0-15.0); WHITE BLOOD COUNT 4.7 x10^3/uL (4.8-10.8)
--- NOTE | 2024-11-06 12:25 | ED Physician Documentation ---
PD HPI DYSPNEA Stated complaint Stated Complaint: SOA,RT SIDE PX Chief complaint Chief Complaint: Cardiac Additional information Additional information: 78-year-old male with history of advanced CHF, dementia, A-fib anticoagulated on Eliquis, pancytopenia presents to emergency department today for multiple complaints. His personal shopper is at bedside providing additional information and support. Patient says that there was confusion around his thorazide he was supposed to increase it but as he was increasing it he started experiencing some right lower back pain radiating to his right knee. He says he originally started to cut back on the dorsi but last few days has not been taking any medications at all for his CHF and is not having an for some increase shortness of breath and tachycardia. He also says that he has been having a rash on his chest and says it looks like measles outbreak denies any history of measles and says he does not know why he thinks it is measles. He is taking Percocet for his right lower back pain which has helped. Meds/Allgy Home Medications Ambulatory Orders Medication Instructions Recorded Confirmed bupropion HCl 150 mg 24 hr tablet, 300 mg PO DAILY 12/25/23 08/16/24 extended release buspirone 5 mg tablet 15 mg PO TID 12/25/23 08/16/24 losartan 50 mg tablet 100 mg PO DAILY 12/25/23 08/16/24 metoprolol succinate 25 mg 25 mg PO BID 12/25/23 08/16/24 tablet,extended release 24 hr sertraline 100 mg tablet 150 mg PO DAILY 12/25/23 08/15/24 tamsulosin 0.4 mg capsule 0.4 mg PO DAILY 12/25/23 08/16/24 trazodone 50 mg tablet 100 mg PO HS 12/25/23 08/15/24 lidocaine 5 % topical patch 1 patch topical DAILY PRN pain #10 04/13/24 08/15/24 patches apixaban 5 mg tablet 5 mg PO BID 08/16/24 08/16/24 atorvastatin 80 mg tablet 80 mg PO QPM 08/16/24 08/16/24 cyclosporine 0.05 % eye drops in a 1 drp ophthalmic (eye) Q12H 08/16/24 08/16/24 dropperette (Restasis) empagliflozin 10 mg tablet 10 mg PO DAILY 08/16/24 08/16/24 ferrous sulfate 325 mg (65 mg 325 mg PO DAILY 08/16/24 08/16/24 iron) tablet (FeroSul) fluticasone fur. 100 mcg-umeclid 1 inh inhalation DAILY 08/16/24 08/16/24 62.5 mcg-vilant 25 mcg inhalat.powder (Trelegy Ellipta) gabapentin 100 mg capsule mg PO HS 08/16/24 gcyvqozxcwuo-hmgkejp-ousli acid tab PO DAILY 08/16/24 500 mcg-lutein 250 mcg chewable tablet oxycodone-acetaminophen 10 mg-325 1 tab PO Q4H 08/16/24 08/16/24 mg tablet ropinirole 2 mg tablet,extended mg PO .eod 08/16/24 release 24 hr sildenafil (pulm.hypertension) 20 mg 08/16/24 mg tablet torsemide 20 mg tablet mg PO DAILY 08/16/24 potassium chloride 10 mEq 40 meq (4 x 10 mEq) PO DAILY 3 08/20/24 capsule,extended release days #12 caps Allergies Allergies Allergy/AdvReac Type Severity Reaction Status Date / Time spironolactone Allergy Unknown Unknown Verified 11/06/24 11:26 [facility] Medical History Medical History (Updated 11/06/24 @ 17:31 by DAVID Vaca) DVT (deep venous thrombosis) CHF (congestive heart failure) Hyperlipemia Hypertension CVA (cerebral vascular accident) Atrial fibrillation Hx of cardiac arrest Social History Social History Smoking Status: Never smoker Do you vape?: No Relationship: Level: Assisted Do you feel safe in your home environment?: Yes Suffered physical, verbal, emotional, or financial abuse?: No POLST Patient has POLST: No Exam Constitutional abnormal general appearance (disheveled), (chronically ill), (appears older than stated age) and (frail appearing), no apparent distress, average body habitus, no limitations and alert HENMT normocephalic and head/scalp atraumatic Eyes PERRL and EOMs intact bilaterally Chest inspection of chest normal and palpation of chest normal Respiratory breath sounds equal bilaterally, normal respiratory effort and no wheezes diminished throughout Cardiovascular heart rate abnormal (tachycardic), rhythm abnormal (irregular) and edema noted (3+ bilateral pitting edema) Gastrointestinal abdomen normal to inspection Genitourinary no CVA tenderness Neurology career developer II-XII intact, no movement abnormality noted, coordination normal and GCS 15 Psychiatry mental status grossly normal and oriented x3 Skin skin color normal Results Vitals Vitals: Vital Signs - 24 hr 11/06/24 11:24 11/06/24 11:26 11/06/24 14:18 Temperature 37.1 C Temperature Source Temporal Artery Scan Pulse Rate 108 H 110 H 101 H Respiratory Rate 18 18 19 Blood Pressure 105/60 105/60 105/60 O2 Saturation 95 93 95 O2 Source Room air Room air Room air Pain Intensity 2 2 8 11/06/24 14:40 11/06/24 16:00 Temperature Temperature Source Pulse Rate 119 H Respiratory Rate 19 Blood Pressure 109/47 L O2 Saturation 95 O2 Source Room air Pain Intensity 7 0 Oxygen O2 Source Room air EKG (time done) 1220: EKG releavant findings:: EKG personally interpreted by author of this note. Relevant findings are: Rate: Rate (enter#) (87) Rhythm: Atrial fibrillation [place]: Normal Intervals: Normal NC QRS: Low voltage Ischemia: Normal ST segments Computer interpretation: Disagree with computer Labs Labs: Laboratory Tests 11/06/24 12:17 WBC 4.7 L RBC 2.93 L Hgb 9.5 L Hct 30.3 L MCV 103.4 H MCH 32.4 H MCHC 31.4 L RDW 15.6 H Plt Count 82 L MPV 12.1 H Neut # (Auto) 2.4 Lymph # (Auto) 0.9 L [place] # (Auto) 0.7 Eos # (Auto) 0.6 Baso # (Auto) 0.0 Absolute Nucleated RBC 0.00 Nucleated RBC % 0.0 Sodium 138 Potassium 4.6 H Chloride 100 L Carbon Dioxide 33 H Anion Gap 5.0 L BUN 32 H Creatinine 2.5 H Estimated GFR (MDRD) 25 L Glucose 98 Calcium 9.1 Total Bilirubin 1.9 H AST 34 ALT 20 Alkaline Phosphatase 137 H Troponin I High Sens 11.3 B-Natriuretic Peptide 376 H Total Protein 7.0 Albumin 3.7 Globulin 3.3 Albumin/Globulin Ratio 1.1 Lipase 62 Rads (name of study) Chest x-ray: Relevant Findings:: Final report received and EMP independent interpretation of test Interpretation: IMPRESSION: Diffuse mild prominence of the pulmonary interstitium usually representing edema or atypical infection. Cardiomegaly. PD Medical Decision Making ED course Complexity details: reviewed old records, reviewed results, re-evaluated patient, considered differential, d/w patient and d/w service loss control consultant (hospitalist, DAVID Coats) ED course: 78-year-old male with very complex past medical history presents emergency department for multiple complaints but of concern patient says that he is having a hard time with his breathing. Differentials include but not limited to pulmonary embolism, pneumonia, CHF exacerbation. Labs are complete for further evaluation mild leukopenia 4.7 mild anemia hemoglobin 9.5, hematocrit 30.3 this appears to be anemia of chronic disease She is concerned Discharge Plan Discharge Patient Disposition: 66 [facility] DC/Xfer Condition: Stable Clinical Impression: Acute hyperkalemia, Acute kidney injury, Dementia, Acute exacerbation of CHF (congestive heart failure), A-fib Interventions: ED Admission Assessment Last Done: 11/06/24 16:56
[2024-11-06 12:44] LABS: ALBUMIN 3.7 g/dL (3.2-5.5); ALBUMIN/GLOBULIN RATIO 1.1 (1.0-2.2); BILIRUBIN,TOTAL 1.9 mg/dL (0.2-1.0); CALCIUM 9.1 mg/dL (8.5-10.3); CREATININE 2.5 mg/dL (0.6-1.3); POTASSIUM 4.6 mmol/L (3.5-4.5)
[2024-11-06 12:48] LABS: TROPONIN I HIGH SENSITIVITY 11.3 ng/L (2.3-19.7)
--- NOTE | 2024-11-06 12:52 | XRAY Report ---
PROCEDURE: XR Chest 1V INDICATIONS: Chest pain TECHNIQUE: One view of the chest was acquired. COMPARISON: 10/19/2024 FINDINGS: Surgical changes and devices: None. Lungs and pleura: Prominence of the interstitium diffusely. No dense consolidation or pleural effusi ons. Mediastinum: Cardiomegaly. Bones and chest wall: Degenerative changes IMPRESSION: Diffuse mild prominence of the pulmonary interstitium usually representing edema or atypical infectio n. Cardiomegaly. Reviewed by: Toni Sanabria MD on 11/06/2024 11:50 AM [facility] Approved by: Toni Sanabria MD on 11/06/2024 11:50 AM [facility] Station ID: [id number]
[2024-11-06] MEDS: FUROSEMIDE 40 MG/4 ML VIAL IVP STA (14:16)
[2024-11-06] MEDS: oxyCODONE 5 MG TABLET PO STA (14:40)
--- NOTE | 2024-11-06 16:01 | HISTORY & PHYSICAL EXAMINATION ---
Chief Complaint Chief Complaint Chief Complaint: lower extremity edema and shortness of breath History of Present Illness Admitted From Admitted From:: ED History Obtained From Records Reviewed: echocardiogram 08/12/24. [facility] chart. History of Present Illness HPI Comment/Other: Nausea shortness of breath and leg swelling for about a week now. Has not been compliant with his Lasix therapy due to some belief that he has about it causing a rash. Was seen in our emergency department about 2 weeks ago with a CHF exacerbation and A-fib with RVR. He was given metoprolol and 40 mg of IV Lasix. And he was discharged to home. Today he presents with noncompliance with his diuretics shortness of breath and tachycardia. He also has concern about a rash on his chest. In the ambulatory environment he is supposed to take metoprolol succinate 50 mg twice daily, apixaban 5 mg twice daily, Jardiance 10 mg daily and Torosemide 20 mg daily. He has not been compliant with these medications. On evaluation today in the emergency department it is noted that his creatinine is higher than normal. On further discussion with the patient he states he is trying to do his best to be compliant with his medications. He has rented some sort of a device that connects to the Internet that is supposed to assist with his medications. Unfortunately he is having difficulty getting this set up and difficulty with its functionality and [place] he has also had some confusion as his pills are of different shapes, for instance he has two different forms of Metoprolol succinate 50mg tabs. I do see some evidence of cognitive dysfunction, as he has been having great difficulty ascertaining that these are the same substance and strength, even though he does understand how to use information on the internet to verify the identities of the tablets. He seems to have told the emergency department provider a different story about his medication noncompliance. I am not entirely sure where the truth lies and I am not entirely sure if he is or is not taking his prescribed medications. In any event he complains of pain in his right leg his right groin and the right side of his back. 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 He lives alone with 2 hired caregivers that come in intermittently. He states he is full code. He states his surrogate decision maker is his significant other who lives in [place]. Her name is Sarah Skaggs. Her phone number is [phone]. [place] he moved back here because his daughter is here.Later on this evening as the nurse is admitting him he states that he does not want to be resuscitated. I will change his status to DNR. Does not have a PCP, previously a patient of Dr Cruz, who has retired. He sees a agricultural plow operator at [facility], Dr Elie Burgos. He asks that we contact this doctor about coordination of care. Meds/Allgy Home Medications Ambulatory Orders Medication Instructions Recorded Confirmed bupropion HCl 150 mg 24 hr tablet, 300 mg PO DAILY 12/25/23 08/16/24 extended release buspirone 5 mg tablet 15 mg PO TID 12/25/23 08/16/24 losartan 50 mg tablet 100 mg PO DAILY 12/25/23 08/16/24 metoprolol succinate 25 mg 25 mg PO BID 12/25/23 08/16/24 tablet,extended release 24 hr sertraline 100 mg tablet 150 mg PO DAILY 12/25/23 08/15/24 tamsulosin 0.4 mg capsule 0.4 mg PO DAILY 12/25/23 08/16/24 trazodone 50 mg tablet 100 mg PO HS 12/25/23 08/15/24 lidocaine 5 % topical patch 1 patch topical DAILY PRN pain #10 04/13/24 08/15/24 patches apixaban 5 mg tablet 5 mg PO BID 08/16/24 08/16/24 atorvastatin 80 mg tablet 80 mg PO QPM 08/16/24 08/16/24 cyclosporine 0.05 % eye drops in a 1 drp ophthalmic (eye) Q12H 08/16/24 08/16/24 dropperette (Restasis) empagliflozin 10 mg tablet 10 mg PO DAILY 08/16/24 08/16/24 ferrous sulfate 325 mg (65 mg 325 mg PO DAILY 08/16/24 08/16/24 iron) tablet (FeroSul) fluticasone fur. 100 mcg-umeclid 1 inh inhalation DAILY 08/16/24 08/16/24 62.5 mcg-vilant 25 mcg inhalat.powder (Trelegy Ellipta) gabapentin 100 mg capsule mg PO HS 08/16/24 lzvphajyhkbx-cwtvecg-yvgki acid tab PO DAILY 08/16/24 500 mcg-lutein 250 mcg chewable tablet oxycodone-acetaminophen 10 mg-325 1 tab PO Q4H 08/16/24 08/16/24 mg tablet ropinirole 2 mg tablet,extended mg PO .eod 08/16/24 release 24 hr sildenafil (pulm.hypertension) 20 mg 08/16/24 mg tablet torsemide 20 mg tablet mg PO DAILY 08/16/24 potassium chloride 10 mEq 40 meq (4 x 10 mEq) PO DAILY 3 08/20/24 capsule,extended release days #12 caps Allergies Allergies Allergy/AdvReac Type Severity Reaction Status Date / Time spironolactone Allergy Unknown Unknown Verified 11/06/24 11:26 [facility] Medical History Medical History (Updated 11/06/24 @ 17:31 by DAVID Vaca) DVT (deep venous thrombosis) CHF (congestive heart failure) Hyperlipemia Hypertension CVA (cerebral vascular accident) Atrial fibrillation Hx of cardiac arrest Social History Social History Smoking Status: Never smoker Do you vape?: No Relationship: Do you feel safe in your home environment?: Yes Suffered physical, verbal, emotional, or financial abuse?: No POLST Patient has POLST: No POLST Status: Full Code Review of Systems Status of ROS: 10 or more systems reviewed and unremarkable except as noted in history and below Constitutional Reports: Fatigue Eyes Denies: Change in vision Ears, nose, mouth, and throat Reports: Dry mouth; Denies: Tinnitus, Change in hearing or Vertigo Cardiovascular Reports: edema, swelling of feet/ankles and other (scrotal edema); Denies: chest pain, palpitations or shortness of breath with exertion Respiratory Reports: SOB with exertion; Denies: Shortness of breath, Cough or Wheezing Gastrointestinal Denies: Abdominal pain Genitourinary Reports: Flank pain (right, with radiation to right leg and right SI area); Denies: Painful urination Musculoskeletal Reports: Back pain; Denies: Joint swelling Integumentary/Breast Denies: Rash (denies rash to me, although part of his complaint to Ed provider.) Neurological Denies: Dizziness or Vertigo Psychiatric Reports: Memory loss and Difficulty concentrating Endocrine Reports: Fatigue Hematologic/Lymphatic Denies: Easy bruising Allergic/Immunologic Denies: Wheezing Prior Level of Functionality: does not drive. mostly stays home. does not use assistive devices to ambulate. Exam Constitutional poorly groomed HENMT normocephalic, hearing grossly normal bilaterally, external ears normal, oral mucous membranes normal (dry) and dentition normal Eyes PERRL and conjunctivae normal Neck/C-Spine visual inspection normal and trachea midline Lymph no lymphadenopathy noted Chest inspection of chest normal and palpation of chest normal Respiratory breath sounds equal bilaterally, normal respiratory effort and no use of accessory muscles diminished breath sounds at bases bilaterally Cardiovascular heart rate abnormal and no murmur tachycardia, a fib Gastrointestinal abdomen normal to inspection and abdomen soft to palpation anasarca at bilateral flanks. Back/Pelvis no lumbar spine tenderness Extremities normal to palpation Neurology no focal motor deficit noted, speech normal and GCS 15 Psychiatry mental status grossly normal and oriented x3 circuitous historian Skin skin color normal and no jaundice Conclusion/Plan Problem List (1) Acute exacerbation of CHF (congestive heart failure): Plan: Pitting edema at bilateral flanks. Severe pitting edema bilateral lower extremities. It is questionable how much medication he is taking at home. I do not think that it is reasonable to send him home at this time, as i do not know how to guide his diuresis. I think that he needs close monitoring of his renal function and careful diuresis. BNP is 376. It was 276 the last time he was here. Review of his last cardiology visit office note on 08/23/2024. Recommendation is for continuing with guideline directed medical therapy for heart failure with reduced ejection fraction. This includes his metoprolol, his Jardiance, his low-dose losartan and his SGLT inhibitor. Recommendation was to continue torsemide at current dosing. That dosing is listed in the chart as 40 mg of furosemide daily. Most recent echocardiogram in August 2024 shows systolic function mildly reduced with calculated left ventricular ejection fraction of 47%. The right ventricle is dilated but there is probably normal right ventricular systolic function. There is no pulmonary hypertension. The right atrial pressure is elevated estimated at 15 mmHg. Last myocardial perfusion scan dated July 29, 2024 shows irregular rhythm estimation of the left ventricular ejection fraction is 35 to 40% there is no evidence of myocardial infarction or infiltrative cardiomyopathy. I believe he is having a acute exacerbation of his congestive heart failure due to the degree of peripheral edema both on his abdominal wall and into his lower extremities. He was given 40 mg of Lasix IV in the emergency department. I will give him an additional 40 mg about 6 hours later. I am concerned about his renal function but I am also concerned about the degree of discomfort that he has with the amount of peripheral edema he is currently experiencing. Qualifiers: Heart failure type: systolic Qualified Code(s): I50.23 - Acute on chronic systolic (congestive) heart failure (2) Acute kidney injury: Plan: New onset acute kidney injury. His creatinine has jumped significantly in the last 2 weeks. With his degree of peripheral edema I am not quite sure what to make of this. I will order a renal ultrasound. I will monitor his renal function closely with a BMP in the AM. I am ordering a urinalysis this evening. Especially in light of our degree of diuresis, I want to closely monitor renal fucntion. . (3) A-fib: Plan: Atrial fibrillation with elevated heart rate. I have resumed his home metoprolol, although at 25mg BID I will give him 5 mg of metoprolol IV this evening, And as needed for heart rate greater than 115.. I am unsure what he is taking at home. Qualifiers: Atrial fibrillation type: longstanding persistent Qualified Code(s): I 48.11 - Longstanding persistent atrial fibrillation (4) Acute hyperkalemia: Plan: Potassium is 4.6 on admission. With diuresis this will likely come down. Will continue to monitor and specially in light of his acute kidney injury. Recheck BMP in the AM. (5) Dementia: Plan: Unfortunately his dementia seems to be playing into his overall health at this time. He is having difficulty managing things at home although he is trying to hire caregivers and set himself up for success he seems to be failing. He disagrees that he is having trouble being compliant with his medications. He states he is doing the best that he can. At the point that we discharge this patient we will need to try to employ home health and help from the family and in the community to assist him with achieving the independence that he desires. I have spent 76 minutes in the care of this patient today. This includes time [id number], review and ordering of diagnostic imaging and laboratory studie, s and consultation with other providers.. Monitoring the patient's signs symptoms, evaluation of medication effectiveness and patient's response to treatment. Qualifiers: Dementia type: unspecified type Dementia severity: unspecified severity Dementia behavioral or psychological symptom: with anxiety Qualified Code(s): F03.94 - Unspecified dementia, unspecified severity, with anxiety Plan Patient was discussed with the ED provider Matt Gil. Decision was made to admit to observation status given his difficulty with her medications and his worsening renal status and his severe anasarca. Lab Results Lab results reviewed: Yes 11/06/24 12:17 11/06/24 12:17 Diagnostic Imaging Results Diagnostic Imaging Results: positive Final report reviewed Diagnostic Imaging Results Comments: Chest x-ray does show some vascular congestion. EKG Results EKG Interpreted Independently: Yes EKG Comparison: Unchanged from prior EKG EKG Findings: Atrial fibrillation Core Measures Anticipated LOS I expect patient to be DC'd or transferred within 96 hours.: Yes Issues Hospital Issues and Management Plan: Diuresis and monitoring of renal function DVT/VTE - Prophylaxis VTE/DVT Device ordered at admit?: Yes VTE/DVT Prophylaxis med ordered at admit?: No Not Ordered - Medical Reason: Not indicated (Continuation of Eliquis)
[2024-11-06] MEDS ORDERED: SODIUM CHLORIDE FLUSH 0.9% 10 ML SYRINGE IVP PRN (16:57)
[2024-11-06] MEDS ORDERED: ACETAMINOPHEN 325 MG TABLET PO PRN (16:57)
[2024-11-06] MEDS ORDERED: METOPROLOL 5 MG/5 ML VIAL IVP PRN (17:23)
[2024-11-06] MEDS: SODIUM CHLORIDE FLUSH 0.9% 10 ML SYRINGE IVP SCH (17:29)
[2024-11-06 18:58] LABS: BILIRUBIN,URINE NEGATIVE (NEGATIVE); GLUCOSE, URINE (UA) 500 mg/dL (NEGATIVE); KETONES,URINE (UA) NEGATIVE (NEGATIVE); LEUKOCYTE ESTERASE, URINE NEGATIVE (NEGATIVE); NITRITE,URINE NEGATIVE (NEGATIVE); OCCULT BLOOD,URINE NEGATIVE (NEGATIVE); PROTEIN,URINE NEGATIVE (NEGATIVE); UROBILINOGEN,URINE 1 (NORMAL) E.U./dL (NORMAL)
[2024-11-06 19:00] LABS: CLARITY,URINE CLEAR (CLEAR)
[2024-11-06 19:12] LABS: BACTERIA,URINE None Seen /HPF (None Seen); RBC,URINE 0-5 /HPF (0-5); SQUAMOUS EPITHELIAL CELL,UR RARE Squamous (<= Few); WBC,URINE 0-3 /HPF (0-3)
[2024-11-06] MEDS: oxyCODONE 5 MG TABLET PO PRN (19:34)
[2024-11-06] MEDS: FUROSEMIDE 40 MG/4 ML VIAL IVP ONE (20:11)
[2024-11-06] MEDS: APIXABAN 5 MG TABLET PO SCH (20:11)
[2024-11-06] MEDS: METOPROLOL SUCCINATE 25 MG TABLET PO SCH (20:11)
[2024-11-06] MEDS: ONDANSETRON ODT 4 MG TABLET TL PRN (20:18)
[2024-11-07] MEDS: LORazepam 0.5 MG TABLET PO ONE (05:17)
[2024-11-07 06:07] LABS: BASOPHILS # (AUTO) 0.1 10^3/uL (0.0-0.1); BASOPHILS % (AUTO) 1.1 %; EOSINOPHILS # (AUTO) 0.5 10^3/uL (0.0-0.7); EOSINOPHILS % (AUTO) 11.7 %; HCT - HEMATOCRIT 32.9 % (42.0-52.0); LYMPHOCYTES % (AUTO) 23.4 %; MEAN CORPUSCULAR HEMOGLOBIN 31.6 pg (27.0-31.0); MEAN CORPUSCULAR HGB CONC 30.4 g/dL (32.0-36.0); MEAN CORPUSCULAR VOLUME 104.1 fL (80.0-94.0); MEAN PLATELET VOLUME 12.7 fL (7.4-11.4); MONOCYTES # (AUTO) 0.7 10^3/uL (0.0-1.0); NEUTROPHILS % (AUTO) 46.6 %; PLT - PLATELET COUNT 83 10^3/uL (130-450); RED BLOOD COUNT 3.16 10^6/uL (4.70-6.10); RED CELL DISTRIBUTION WIDTH 15.6 % (12.0-15.0); WHITE BLOOD COUNT 4.4 x10^3/uL (4.8-10.8)
[2024-11-07 06:23] LABS: CALCIUM 9.2 mg/dL (8.5-10.3); CREATININE 2.4 mg/dL (0.6-1.3); MAGNESIUM 2.4 mg/dL (1.7-2.3); POTASSIUM 4.3 mmol/L (3.5-4.5)
--- NOTE | 2024-11-07 07:18 | PROVIDER PROGRESS NOTE ---
Subjective Prog Note Date Prog Note Date: 11/07/24 Prog Note Time: 07:18 Subjective Pt reports feeling: Improved Subjective: Feels a little bit better this morning. Has been urinating lots overnight. Current Medications Current Medications Current Medications: Current Medications Generic Name Dose Route Start Last Admin Trade Name Freq PRN Reason Stop Dose Admin Acetaminophen 650 mg 11/06/24 16:57 Acetaminophen 325 Mg Tablet PO Q4HR PRN Pain 1 to 4, or Fever Apixaban 2.5 mg 11/06/24 21:00 11/06/24 20:11 Apixaban 5 Mg Tablet PO 2.5 mg BID DEX Administration Furosemide 40 mg 11/07/24 07:17 Furosemide 40 Mg/4 Ml Vial IVP 11/07/24 07:18 ONCE ONE Metoprolol Succinate 25 mg 11/06/24 21:00 11/06/24 20:11 Metoprolol Succinate 25 Mg Tablet PO 25 mg BID DEX Administration Metoprolol Tartrate 5 mg 11/06/24 17:23 Metoprolol 5 Mg/5 Ml Vial IVP Q6H PRN Tachycardia Ondansetron HCl 4 mg 11/06/24 16:57 11/06/24 20:18 Ondansetron Odt 4 Mg Tablet TL 4 mg Q6HR PRN Administration Nausea / Vomiting Oxycodone HCl 5 mg 11/06/24 16:57 11/06/24 19:34 Oxycodone 5 Mg Tablet PO 5 mg Q4HR PRN Administration Pain 5 to 7 Sodium Chloride 10 ml 11/06/24 16:57 Sodium Chloride Flush 0.9% 10 Ml Syringe IVP PRN PRN NEEDED PER PROVIDER ORDERS Sodium Chloride 10 ml 11/06/24 17:00 11/07/24 00:06 Sodium Chloride Flush 0.9% 10 Ml Syringe IVP 10 ml 0100,0900,1700 DEX Administration Objective Vital Signs/Intake & Output Reviewed Vital Signs: Yes Vital Signs: Vital Signs x48h Temp Pulse Resp BP Pulse Ox 11/07/24 04:58 36.9 C 96 20 133/82 H 93 11/07/24 00:00 37.2 C 95 18 116/79 96 Intake & Output: Intake & Output 11/04/24 11/05/24 11/06/24 11/07/24 23:59 23:59 23:59 23:59 Intake Total 500 / 500 200 / 200 Output Total 975 / 975 600 / 600 Balance -475 / -475 -400 / -400 Weight (kg) 116.5 kg 115.5 kg Objective General Appearance: positive No acute distress and Alert Eyes Bilateral: positive Normal inspection ENT: positive ENT inspection nml Neck: positive Nml inspection Respiratory: positive No respiratory distress and Breath sounds nml Cardiovascular: positive Regular rate & rhythm Abdomen: positive Non-tender, No distention and Other (pitting edema of the abdominal wall is much decreased today. ) Skin: positive Color nml and No rash Extremities: positive Pedal edema (decreased, but still present. ) Neurologic/Psychiatric: positive Oriented x3 Lab Results 11/07/24 05:35 11/07/24 05:35 Other Labs: Lab Results x24hrs 11/07/24 11/06/24 11/06/24 Range/Units 05:35 18:20 12:17 WBC 4.4 L 4.7 L (4.8-10.8) x10^3/uL RBC 3.16 L 2.93 L (4.70-6.10) 10^6/uL Hgb 10.0 L 9.5 L (14.0-18.0) g/dL Hct 32.9 L 30.3 L (42.0-52.0) % MCV 104.1 H 103.4 H (80.0-94.0) fL MCH 31.6 H 32.4 H (27.0-31.0) pg MCHC 30.4 L 31.4 L (32.0-36.0) g/dL RDW 15.6 H 15.6 H (12.0-15.0) % Plt Count 83 L 82 L (130-450) 10^3/uL MPV 12.7 H 12.1 H (7.4-11.4) fL Neut # (Auto) 2.0 2.4 (1.5-6.6) 10^3/uL Lymph # (Auto) 1.0 L 0.9 L (1.5-3.5) 10^3/uL Leake # (Auto) 0.7 0.7 (0.0-1.0) 10^3/uL Eos # (Auto) 0.5 0.6 (0.0-0.7) 10^3/uL Baso # (Auto) 0.1 0.0 (0.0-0.1) 10^3/uL Absolute Nucleated RBC 0.00 0.00 x10^3/uL Nucleated RBC % 0.0 0.0 /100WBC Sodium 139 138 (135-145) mmol/L Potassium 4.3 4.6 H (3.5-4.5) mmol/L Chloride 98 L 100 L (101-111) mmol/L Carbon Dioxide 33 H 33 H (21-32) mmol/L Anion Gap 8.0 5.0 L (6-13) BUN 32 H 32 H (6-20) mg/dL Creatinine 2.4 H 2.5 H (0.6-1.3) mg/dL Estimated GFR (MDRD) 26 L 25 L (>89) Glucose 100 98 (74-104) mg/dL Calcium 9.2 9.1 (8.5-10.3) mg/dL Magnesium 2.4 H (1.7-2.3) mg/dL Total Bilirubin 1.9 H (0.2-1.0) mg/dL AST 34 (10-42) IU/L ALT 20 (10-60) IU/L Alkaline Phosphatase 137 H (42-121) IU/L Troponin I High Sens 11.3 (2.3-19.7) ng/L B-Natriuretic Peptide 376 H (5-100) pg/mL Total Protein 7.0 (6.4-8.9) g/dL Albumin 3.7 (3.2-5.5) g/dL Globulin 3.3 (2.1-4.2) g/dL Albumin/Globulin Ratio 1.1 (1.0-2.2) Lipase 62 (11-82) U/L Urine Color YELLOW Urine Clarity CLEAR (CLEAR) Urine pH 6.0 (5.0-7.5) PH Ur Specific [place] 1.015 (1.002-1.030) Urine Protein NEGATIVE (NEGATIVE) mg/dL Urine Glucose (UA) 500 H (NEGATIVE) mg/dL Urine Ketones NEGATIVE (NEGATIVE) mg/dL Urine Occult Blood NEGATIVE (NEGATIVE) Urine Nitrite NEGATIVE (NEGATIVE) Urine Bilirubin NEGATIVE (NEGATIVE) Urine Urobilinogen 1 (NORMAL) (NORMAL) E.U./dL Ur Leukocyte Esterase NEGATIVE (NEGATIVE) Urine RBC 0-5 (0-5) /HPF Urine WBC 0-3 (0-3) /HPF Ur Squamous Epith Cells RARE Squamous (<= Few) Urine Bacteria None Seen (None Seen) /HPF Urine Culture Comments NOT INDICATED Assessment/Plan Problem List (1) Acute exacerbation of CHF (congestive heart failure): Impression: 11/07: on exam his edema is much decreased. His renal function is stable. He still continues to have a fair amount of peripheral edema. He has been here approximately 24 hours and is -2 L for the admission. I have ordered an additional 40 mg of Lasix IV this morning. I will likely repeat this again this afternoon Body weight data is somewhat unreliable, however I have a weight of 10 kilograms on 10/19. I have an admission weight of 116 kg and I have him listed as 115.5 kg this morning. 11/06: Pitting edema at bilateral flanks. Severe pitting edema bilateral lower extremities. It is questionable how much medication he is taking at home. I do not think that it is reasonable to send him home at this time, as i do not know how to guide his diuresis. I think that he needs close monitoring of his renal function and careful diuresis. BNP is 376. It was 276 the last time he was here. Review of his last cardiology visit office note on 08/23/2024. Recommendation is for continuing with guideline directed medical therapy for heart failure with reduced ejection fraction. This includes his metoprolol, his Jardiance, his low-dose losartan and his SGLT inhibitor. Recommendation was to continue torsemide at current dosing. That dosing is listed in the chart as 40 mg of furosemide daily. Most recent echocardiogram in August 2024 shows systolic function mildly reduced with calculated left ventricular ejection fraction of 47%. The right ventricle is dilated but there is probably normal right ventricular systolic function. There is no pulmonary hypertension. The right atrial pressure is elevated estimated at 15 mmHg. Last myocardial perfusion scan dated July 29, 2024 shows irregular rhythm estimation of the left ventricular ejection fraction is 35 to 40% there is no evidence of myocardial infarction or infiltrative cardiomyopathy. Qualifiers: Heart failure type: systolic Qualified Code(s): I50.23 - Acute on chronic systolic (congestive) heart failure (2) Acute kidney injury: Impression: New onset acute kidney injury. His creatinine has jumped significantly in the last 2 weeks. With his degree of peripheral edema I am not quite sure what to make of this. renal ultrasound is pending. I will monitor his renal function closely with a BMP in the AM. Urinalysis is unremarkable. . His creatinine remains stable in the face of diuresis. I will continue to aggressively diurese him.. . (3) A-fib: Impression: Atrial fibrillation with elevated heart rate. I have resumed his home metoprolol, although at 25mg BID I will give him 5 mg of metoprolol IV this evening, And as needed for heart rate greater than 115.. I am unsure what he is taking at home. Medication reconciliation is pending. Qualifiers: Atrial fibrillation type: longstanding persistent Qualified Code(s): I 48.11 - Longstanding persistent atrial fibrillation (4) Acute hyperkalemia: Impression: Potassium is 4.6 on admission. Potassium is trending down with Lasix administration. I will not give him supplemental potassium today. Recheck BMP in the AM. (5) Dementia: Impression: Unfortunately his dementia seems to be playing into his overall health at this time. He is having difficulty managing things at home although he is trying to hire caregivers and set himself up for success he seems to be failing. He disagrees that he is having trouble being compliant with his medications. He states he is doing the best that he can. At the point that we discharge this patient we will need to try to employ home health and help from the family and in the community to assist him with achieving the independence that he desires. Social work recommendation is to discuss with Kamron his caregiver. We will do this. Additionally we will employ home health for home health aide RN and social work upon discharge. I have spent 50minutes in the care of this patient today. This includes time [id number], review and ordering of diagnostic imaging and laboratory studies.. Monitoring the patient's signs symptoms, evaluation of medication effectiveness and patient's response to treatment. Qualifiers: Dementia behavioral or psychological symptom: with anxiety Dementia severity: unspecified severity Dementia type: unspecified type Qualified Code(s): F03.94 - Unspecified dementia, unspecified severity, with anxiety
[2024-11-07] MEDS: FUROSEMIDE 40 MG/4 ML VIAL IVP ONE (07:51)
[2024-11-07 07:54] LABS: ESTIMATED AVERAGE GLUCOSE 114 mg/dL (70-100); HEMOGLOBIN A1c% 5.6 % (4.27-6.07)
--- NOTE | 2024-11-07 14:18 | PHARMACY PROGRESS NOTE ---
Best Possible Medication History Admit Date and Time: 11/07/24 1250 Home Medications Medication Instructions Recorded Confirmed Type tamsulosin 0.4 mg capsule 0.4 mg PO DAILY 12/25/23 11/07/24 History lidocaine 5 % topical patch 1 patch topical DAILY PRN pain #10 04/13/24 11/07/24 Rx patches apixaban 5 mg tablet 5 mg PO BID 08/16/24 11/07/24 History atorvastatin 80 mg tablet 80 mg PO QPM 08/16/24 11/07/24 History cyclosporine 0.05 % eye drops in a 1 drp ophthalmic (eye) Q12H 08/16/24 11/07/24 History dropperette (Restasis) empagliflozin 10 mg tablet 10 mg PO DAILY 08/16/24 11/07/24 History ferrous sulfate 325 mg (65 mg 325 mg PO DAILY 08/16/24 11/07/24 History iron) tablet (FeroSul) ynyrnlmsowch-utdzzvk-trmag acid 1 tab PO DAILY 08/16/24 11/07/24 History 500 mcg-lutein 250 mcg chewable tablet oxycodone-acetaminophen 10 mg-325 1 tab PO Q4H PRN pain 08/16/24 11/07/24 History mg tablet sildenafil (pulm.hypertension) 20 100 mg PO DAILY PRN PER PROVIDER 08/16/24 11/07/24 History mg tablet torsemide 20 mg tablet 40 mg PO DAILY 08/16/24 11/07/24 History fluticasone propionate 100 2 inh inhalation BID 11/07/24 11/07/24 History mcg/actuation blister powder for inhalation (Flovent Diskus) losartan 25 mg tablet 25 mg PO DAILY 11/07/24 11/07/24 History metoprolol succinate 50 mg 50 mg PO BID 11/07/24 11/07/24 History tablet,extended release 24 hr potassium chloride 10 mEq 30 meq PO DAILY 11/07/24 11/07/24 History capsule,extended release Processed by: Pharmacy Medications reviewed in ED?: No Medication History completed: Yes Patient Interview: Completed Secondary Source(s): Prescription bottles and Insurance records [facility] Statement: As the person ultimately responsible for medication therapy, providers are able to order a medication from an existing home medication list in [facility] via the "Reconcile Routine" prior to Confirmation of that medication by client support associate. Such practice is discouraged except when the physician, in their clinical judgment, deems that a medical need exists for a medication without regard to previous use.
[2024-11-07] MEDS: LIDOCAINE PATCH 4% TOP PRN (17:01)
[2024-11-07] MEDS ORDERED: BUDESONIDE 0.5 MG/2 ML NEB INH SCH (19:00)
--- NOTE | 2024-11-07 19:06 | Ultrasound Report ---
PROCEDURE: US Renal (Retroperitoneal) INDICATIONS: new URSZULA TECHNIQUE: Real-time scanning was performed of the retroperitoneal organs, with image documentation. COMPARISON: None. FINDINGS: Evaluation is limited due to body habitus and overlying bowel gas. Kidneys: Kidneys are normal in size. Right kidney measures 9.8 cm long; left kidney measures 11.0 c m long. Right renal cortical thickness is 1.0 cm; left renal cortical thickness is 1.3 cm. No solid masses, hydronephrosis, or nephrolithiasis. Bladder: Pre-void bladder volume is 357.5 mL. Post-void residual is 23.7 mL. Pre-void images demon strate no intraluminal masses or stones. On pre-void images, bilateral ureteral jets are noted with color Doppler interrogation. (Of note, ureteral jets may not be detectable in up to 25% of cases due to insufficient differences in specific gravity between ureteral and bladder urine). Miscellaneous: No free abdominal fluid. IMPRESSION: 1.Limited evaluation due to body habitus and overlying bowel gas. 2.Right renal atrophy compared to the left. 3.No sonographic evidence of hydronephrosis or obstructive urolithiasis. Reviewed by: Cristobal Duran MD on 11/07/2024 7:04 PM PST Approved by: Cristobal Duran MD on 11/07/2024 7:04 PM PST Station ID: [email or web address]
[2024-11-07] MEDS: METOPROLOL SUCCINATE 50 MG TABLET PO SCH (20:52)
[2024-11-07] MEDS: APIXABAN 2.5 MG TABLET PO SCH (20:53)
[2024-11-07] MEDS: ATORVASTATIN 40 MG TABLET PO SCH (20:53)
[2024-11-07] MEDS ORDERED: [UNRECOGNIZED DRUG - OTHER] INH SCH (21:00)
[2024-11-07] MEDS ORDERED: FLUTICASONE PROPIONATE INH SCH (21:00)
[2024-11-08 06:21] LABS: BASOPHILS % (AUTO) 0.6 %; EOSINOPHILS # (AUTO) 0.7 10^3/uL (0.0-0.7); EOSINOPHILS % (AUTO) 15.2 %; HCT - HEMATOCRIT 31.6 % (42.0-52.0); HGB - HEMOGLOBIN 9.9 g/dL (14.0-18.0); MEAN CORPUSCULAR HEMOGLOBIN 32.1 pg (27.0-31.0); MEAN CORPUSCULAR HGB CONC 31.3 g/dL (32.0-36.0); MEAN CORPUSCULAR VOLUME 102.6 fL (80.0-94.0); MEAN PLATELET VOLUME 12.8 fL (7.4-11.4); MONOCYTES # (AUTO) 0.7 10^3/uL (0.0-1.0); MONOCYTES % (AUTO) 15.2 %; NEUTROPHILS # (AUTO) 2.2 10^3/uL (1.5-6.6); NEUTROPHILS % (AUTO) 47.8 %; PLT - PLATELET COUNT 80 10^3/uL (130-450); RED BLOOD COUNT 3.08 10^6/uL (4.70-6.10); RED CELL DISTRIBUTION WIDTH 15.9 % (12.0-15.0); WHITE BLOOD COUNT 4.7 x10^3/uL (4.8-10.8)
[2024-11-08 06:42] LABS: CALCIUM 8.7 mg/dL (8.5-10.3); CREATININE 1.9 mg/dL (0.6-1.3); MAGNESIUM 2.3 mg/dL (1.7-2.3); POTASSIUM 3.9 mmol/L (3.5-4.5)
[2024-11-08 07:00] VITALS: O2SAT 94
[2024-11-08] MEDS: MULTIVITAMIN TABLET PO SCH (08:31)
[2024-11-08] MEDS: FUROSEMIDE 40 MG/4 ML VIAL IVP ONE (08:31)
[2024-11-08] MEDS: EMPAGLIFLOZIN 10 MG PO SCH (08:31)
[2024-11-08] MEDS: TAMSULOSIN 0.4 MG CAPSULE PO SCH (08:31)
--- NOTE | 2024-11-08 08:31 | Discharge Summary ---
"Discharge Summary Admit Date: 11/06/24 Discharge Date: 11/08/24 Discharging Provider: Chelsea Mills PA-C Primary Care Provider: Enrike Sierra MD Code Status: Attempt Resuscitation DIAGNOSES Discharge Diagnoses with Status of Each Condition: Acute exacerbation of CHF, partially resolved Acute kidney injury, resolving Atrial fibrillation, chronic treated Hyperkalemia, resolved Dementia, chronic HPI History of Present Illness: Nausea shortness of breath and leg swelling for about a week now. Has not been compliant with his Lasix therapy due to some belief that he has about it causing a rash. Was seen in our emergency department about 2 weeks ago with a CHF exacerbation and A-fib with RVR. He was given metoprolol and 40 mg of IV Lasix. And he was discharged to home. Today he presents with noncompliance with his diuretics shortness of breath and tachycardia. He also has concern about a rash on his chest. In the ambulatory environment he is supposed to take metoprolol succinate 50 mg twice daily, apixaban 5 mg twice daily, Jardiance 10 mg daily and Torosemide 20 mg daily. He has not been compliant with these medications. On evaluation today in the emergency department it is noted that his creatinine is higher than normal. On further discussion with the patient he states he is trying to do his best to be compliant with his medications. He has rented some sort of a device that connects to the Internet that is supposed to assist with his medications. Unfortunately he is having difficulty getting this set up and difficulty with its functionality and [place] has also had some confusion as his pills are of different shapes, for instance he has two different forms of Metoprolol succinate 50mg tabs. I do see some evidence of cognitive dysfunction, as he has been having great difficulty ascertaining that these are the same substance and strength, even though he does understand how to use information on the internet to verify the identities of the tablets. He seems to have told the emergency department provider a different story about his medication noncompliance. I am not entirely sure where the truth lies and I am not entirely sure if he is or is not taking his prescribed medications. In any event he complains of pain in his right leg his right groin and the right side of his back. 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 He lives alone with 2 hired caregivers that come in intermittently. He states he is full code. He states his surrogate decision maker is his significant other who lives in [place]. Her name is Sarah Skaggs. Her phone number is [phone]. [place] he moved back here because his daughter is here.Later on this evening as the nurse is admitting him he states that he does not want to be resuscitated. I will change his status to DNR. Does not have a PCP, previously a patient of Dr Cruz, who has retired. He sees a gta at [facility], Dr Elie Burgos. He asks that we contact this doctor about coordination of care. CONSULTS | PROCEDURES Procedures: Renal ultrasound:IMPRESSION: 1.Limited evaluation due to body habitus and overlying bowel gas. 2.Right renal atrophy compared to the left. 3.No sonographic evidence of hydronephrosis or obstructive urolithiasis. Chest x-ray:IMPRESSION: Diffuse mild prominence of the pulmonary interstitium usually representing edema or atypical infection. Cardiomegaly. HOSPITAL COURSE Hospital Course: (1) Acute exacerbation of CHF (congestive heart failure): 11/08:He has a neurology appointment in [place] today. He has been waiting greater than 3 months for this appointment. I would like an additional 24 hours to diurese him and watch his renal function which is actually improving. However patient is caregiver would really like to attend this appointment. I recognize there is a high risk of readmission but I think seeing neurology and working on evaluation of his dementia diagnosis is also of a high priority and specialty appointments are difficult to obtain. His edema continues to decrease. 11/07: on exam his edema is much decreased. His renal function is stable. He still continues to have a fair amount of peripheral edema. He has been here approximately 24 hours and is -2 L for the admission. I have ordered an additional 40 mg of Lasix IV this morning. I will likely repeat this again this afternoon Body weight data is somewhat unreliable, however I have a weight of 10 kilograms on 10/19. I have an admission weight of 116 kg and I have him listed as 115.5 kg this morning. 11/06: Pitting edema at bilateral flanks. Severe pitting edema bilateral lower extremities. It is questionable how much medication he is taking at home. I do not think that it is reasonable to send him home at this time, as i do not know how to guide his diuresis. I think that he needs close monitoring of his renal function and careful diuresis. BNP is 376. It was 276 the last time he was here. Review of his last cardiology visit office note on 08/23/2024. Recommendation is for continuing with guideline directed medical therapy for heart failure with reduced ejection fraction. This includes his metoprolol, his Jardiance, his low-dose losartan and his SGLT inhibitor. Recommendation was to continue torsemide at current dosing. That dosing is listed in the chart as 40 mg of furosemide daily. Most recent echocardiogram in August 2024 shows systolic function mildly reduced with calculated left ventricular ejection fraction of 47%. The right ventricle is dilated but there is probably normal right ventricular systolic function. There is no pulmonary hypertension. The right atrial pressure is elevated estimated at 15 mmHg. Last myocardial perfusion scan dated July 29, 2024 shows irregular rhythm estimation of the left ventricular ejection fraction is 35 to 40% there is no evidence of myocardial infarction or infiltrative cardiomyopathy. (2) Acute kidney injury: Impression: New onset acute kidney injury. His creatinine has jumped significantly in the last 2 weeks. With his degree of peripheral edema I am not quite sure what to make of this. Renal ultrasound shows some right renal atrophy as compared to the left. There is no evidence of obstruction or hydronephrosis. I would recommend that his renal function be followed closely in the outpatient environment. . Urinalysis is unremarkable. . His creatinine remains stable in the face of diuresis. I will continue to aggressively diurese him.. 2 Laboratory Tests 08/16/24 08/20/24 10/04/24 11:44 13:51 12:55 Creatinine 1.8 H 1.6 H 1.3 10/19/24 11/06/24 11/07/24 18:12 12:17 05:35 Creatinine 1.4 H 2.5 H 2.4 H 11/08/24 05:05 Creatinine 1.9 H . (3) A-fib: Atrial fibrillation with elevated heart rate. treated with intermitent IV metoprolol while here as well as po dosing. home dosing restarted on dc. (4) Acute hyperkalemia: Potassium is 4.6 on admission. Potassium is trending down with Lasix administration. Resume home Kcl on dc. Laboratory Tests 11/06/24 11/07/24 11/08/24 12:17 05:35 05:05 Potassium 4.6 H 4.3 3.9 (5) Dementia: Impression: Unfortunately his dementia seems to be playing into his overall health at this time. He is having difficulty managing things at home although he is trying to hire caregivers and set himself up for success he seems to be failing. He disagrees that he is having trouble being compliant with his medications. He states he is doing the best that he can. At the point that we discharge this patient we will need to try to employ home health and help from the family and in the community to assist him with achieving the independence that he desires. Social work recommendation is to discuss with Kamron his caregiver. We will do this. Additionally we will employ home health for home health aide RN and social work upon discharge. I was able to get in touch with Michael, his other caregiver prior to dc. I will also send a copy of this summary to patient's gta, per his request. ALLERGIES Allergies Allergy/AdvReac Type Severity Reaction Status Date / Time spironolactone Allergy Unknown Unknown Verified 11/06/24 11:26 MEDICATIONS Ambulatory Orders Medication Instructions Recorded Confirmed tamsulosin 0.4 mg capsule 0.4 mg PO DAILY 12/25/23 11/07/24 lidocaine 5 % topical patch 1 patch topical DAILY PRN pain #10 04/13/24 11/07/24 patches atorvastatin 80 mg tablet 80 mg PO QPM 08/16/24 11/07/24 cyclosporine 0.05 % eye drops in a 1 drp ophthalmic (eye) Q12H 08/16/24 11/07/24 dropperette (Restasis) empagliflozin 10 mg tablet 10 mg PO DAILY 08/16/24 11/07/24 ferrous sulfate 325 mg (65 mg 325 mg PO DAILY 08/16/24 11/07/24 iron) tablet (FeroSul) vnslzmkiukoe-aqqczrs-yrcuj acid 1 tab PO DAILY 08/16/24 11/07/24 500 mcg-lutein 250 mcg chewable tablet oxycodone-acetaminophen 10 mg-325 1 tab PO Q4H PRN pain 08/16/24 11/07/24 mg tablet sildenafil (pulm.hypertension) 20 100 mg PO DAILY PRN PER PROVIDER 10/07/24 12/29/24 mg tablet torsemide 20 mg tablet 40 mg PO DAILY 08/16/24 11/07/24 fluticasone propionate 100 2 inh inhalation BID 11/07/24 11/07/24 mcg/actuation blister powder for inhalation (Flovent Diskus) losartan 25 mg tablet 25 mg PO DAILY 11/07/24 11/07/24 metoprolol succinate 50 mg 50 mg PO BID 11/07/24 11/07/24 tablet,extended release 24 hr potassium chloride 10 mEq 30 meq PO DAILY 11/07/24 11/07/24 capsule,extended release apixaban 2.5 mg tablet (Eliquis) 2.5 mg PO BID #60 tabs 11/08/24 PHYSICAL EXAM AT DISCHARGE General Appearance: positive No acute distress and Alert Eyes Bilateral: positive Normal inspection ENT: positive ENT inspection nml Neck: positive Nml inspection Respiratory: positive Chest non-tender, No respiratory distress and Breath sounds nml Cardiovascular: positive Irregularly irregular and Tachycardia Abdomen: positive Non-tender, No distention and Other (flank edema remains, but much decreased) Back: positive Nml inspection Skin: positive Color nml and No rash Extremities: positive Pedal edema (2+ at ankles) Neurologic/Psychiatric: positive Oriented x3 LABS 11/08/24 05:05 11/08/24 05:05 FOLLOW UP Follow Up: Dr Sierra, new PCP, as scheduled, or sooner if possible. Dr Burgos, cardiology, as scheduled. TIME SPENT Time Spent in Discharge (Minutes): 45 Discharge Plan Discharge Patient Disposition: Home, Self Care Condition: Stable Prescriptions: New Eliquis 2.5 mg Tablet 2.5 mg PO BID Qty: 60 0RF Continued tamsulosin 0.4 MG capsule 0.4 mg PO DAILY lidocaine 1 PATCH adhesive patch,medicated 1 patch topical DAILY PRN (Reason: pain) Qty: 10 0RF Rx Instructions: apply to affected area for 12 hours and then off for 12 hours. atorvastatin 80 mg tablet 80 mg PO QPM Patient Comments: TAKE 1 TABLET BY MOUTH DAILY oxycodone-acetaminophen 10-325 mg tablet 1 tab PO Q4H PRN (Reason: pain) Patient Comments: TAKE 1 TO 1 AND A HALF TABLETS BY MOUTH EVERY 4 HOURS NEEDED FOR PAIN. MAX 6 TABLETS PER DAY cyclosporine [Restasis] 0.05 % dropperette 1 drp ophthalmic (eye) Q12H empagliflozin 10 mg tablet 10 mg PO DAILY ferrous sulfate [FeroSul] 325 mg (65 mg iron) tablet 325 mg PO DAILY Patient Comments: TAKE 1 TABLET BY MOUTH EVERY MORNING WITH BREAKFAST qrgmcnge-ivn-vuzui acid-lutein 500-250 mcg tablet,chewable 1 tab PO DAILY torsemide 20 mg tablet 40 mg PO DAILY Patient Comments: TAKE 2 TABLETS BY MOUTH DAILY sildenafil (pulm.hypertension) 20 mg tablet 100 mg PO DAILY PRN (Reason: PER PROVIDER) Patient Comments: TAKE 1 TO 5 TABLETS BY MOUTH DAILY 1 HOUR BEFORE SEXUAL ACTIVITY ON AN EMPTY STOMACH NEEDED DIRECTED. NO MORE THAN 100 MG IN 24 HOUR PERIOD metoprolol succinate 50 mg tablet extended release 24 hr 50 mg PO BID losartan 25 mg tablet 25 mg PO DAILY fluticasone propionate [Flovent Diskus] 100 mcg/actuation blister with device 2 inh inhalation BID potassium chloride 10 mEq capsule, extended release 30 meq PO DAILY Discontinued apixaban 5 mg tablet 5 mg PO BID Activity Restrictions: No Restrictions Diet: Cardiac Health Concerns: You came into the hospital with increasing edema in your lower extremities and in your abdominal wall. I would like you to work with your caregivers to make sure that you are taking your medications exactly as prescribed. Since you have been here in the hospital we have been able to get your fluid balance back to something that approaches normal. Your kidneys have also improved since you have been here in the hospital. I think this is due to adequately taking your diuretics. Because I am not certain that you have taken your medications correctly for the last few weeks I am making minimal changes to your medications. The only change I am making in your medications is to reduce your Eliquis also called apixaban from 5 mg to 2.5 mg a day. The reason I am doing this is because your kidney function is decreased and therefore you need less of this medication. Otherwise, I would like you to continue all of your medications You need to weigh yourself at home daily. If you have more than a 5 pound change in your weight you need to let us know immediately. Care Plan Goals: Take all of your medications exactly as prescribed Establish primary care Follow-up with your gta, I will send him records from this hospitalization Keep your neurology appointment today Assessment: While you have been in the hospital you have demonstrated some understanding regarding your medical therapies. It is just important to get help from your caregivers in taking your medications correctly. Continue to use your caregivers to help you keep your schedule, make your appointments and take your medications You have a follow-up scheduled with Dr. Sierra on December 09 [address] [facility]. You should arrive for this appointment at 1:40 PM. Make sure you keep this appointment Print Language: Gabonese Patient Instructions: Heart Failure Stand Alone Forms: PCP List Follow-up Care: Enrike Sierra MD [Credentialed Staff Provider] -"
[2024-11-08] MEDS: FERROUS SULFATE 325 MG TABLET PO SCH (08:32)
[2024-11-08 08:53] VITALS: BP 121/79; TEMP 98.1
[2024-11-08] MEDS ORDERED: Cyclosporine [Restasis] 0.05 % dropperette EACHEYE SCH (09:00)
[2024-11-08] MEDS ORDERED: POTASSIUM CHLORIDE 10 MEQ CAPSULE PO SCH (09:00)
== END 2024-11-08 10:00 | disposition home or self-care (01) | DRG 291 ==
LOC: MS2 11:03 → ED 11:03 → MS2 16:56
PROVIDERS: ADMIT Physician Assistant Medical; ATTEND Physician Assistant Medical
DX: I48.11 Longstanding persistent atrial fibrillation; T50.1X6A Underdosing of loop [high-ceiling] diuretics, initial encounter; I11.0 Hypertensive heart disease with heart failure; R10.31 Right lower quadrant pain; Z66 Do not resuscitate; F03.94 Unspecified dementia, unspecified severity, with anxiety; H53.8 Other visual disturbances; Z79.01 Long term (current) use of anticoagulants; R00.0 Tachycardia, unspecified; Z91.128 Patient's intentional underdosing of medication regimen for other reason; I69.398 Other sequelae of cerebral infarction; Z86.74 Personal history of sudden cardiac arrest; M79.604 Pain in right leg; T44.7X6A Underdosing of beta-adrenoreceptor antagonists, initial encounter; N17.9 Acute kidney failure, unspecified; T45.516A Underdosing of anticoagulants, initial encounter; T38.3X6A Underdosing of insulin and oral hypoglycemic [antidiabetic] drugs, initial encounter; R41.89 Other symptoms and signs involving cognitive functions and awareness; M54.9 Dorsalgia, unspecified; E87.5 Hyperkalemia; I50.23 Acute on chronic systolic (congestive) heart failure